=== PATIENT | female | born 1955 | race Caucasian/White ===

== ENCOUNTER → 2017-12-11 10:17 | Outpatient (CLI) | payer OTHER, SELFPAY ==
--- NOTE | 2017-12-11 | DI.MG.S_ITS ---
BILATERAL DIGITAL SCREENING MAMMOGRAM 3D/2D WITH CAD: 12/11/2017 CLINICAL: Routine screening. Family history of breast cancer. Comparison is made to exams dated: 11/17/2012 mammogram, 11/01/2015 mammogram, and 11/02/2009 mammogram - [facility]. The tissue of both breasts is extremely dense, which lowers the sensitivity of mammography. Current study was also evaluated with a Computer Aided Detection (CAD) system. No significant masses, calcifications, or other findings are seen in either breast. There has been no significant interval change. IMPRESSION: NEGATIVE There is no mammographic evidence of malignancy. A 1 year screening mammogram is recommended. This exam was interpreted at Station ID: [id number]. NOTE: For mammograms, a report in lay terms will be sent to the patient. Approximately 15% of breast malignancies will not be visualized mammographically. In the management of a palpable breast mass, a negative mammogram must not discourage biopsy of a clinically suspicious lesion. Electronically Signed By: Sachin andrade/rosalia:12/11/2017 16:47:42 letter sent: Normal Exam ACR BI-RADS Category 1: Negative [id number]
== END ==
PROVIDERS: Family Provider Family Medicine; PCP Family Medicine; Visit Provider Family Medicine
DX: Z12.31 Encounter for screening mammogram for malignant neoplasm of breast (principal); Z80.3 Family history of malignant neoplasm of breast
CPT/HCPCS: 77063; 77067

== ENCOUNTER → 2018-05-19 09:36 | Outpatient (CLI) | payer OTHER, SELFPAY | PROVIDERS: Family Provider Family Medicine; PCP Family Medicine; Visit Provider Family Medicine | DX: M85.88 Other specified disorders of bone density and structure, other site (principal); Z78.0 Asymptomatic menopausal state; E07.9 Disorder of thyroid, unspecified; Z82.62 Family history of osteoporosis | CPT/HCPCS: 77080 ==

== ENCOUNTER → 2018-09-30 11:20 | Outpatient (CLI) | payer MEDICARE, OTHER, SELFPAY ==
--- NOTE | 2018-09-30 | DI.RAD.S_ITS ---
PROCEDURE: XR LUMBAR SPINE 2-3V INDICATIONS: LOW BACK PAIN TECHNIQUE: 3 views of the lumbar spine were acquired. COMPARISON: [facility], , L-SPINE 2-3 VIEWS, 08/27/2008, 10:11. FINDINGS: Bones: No fracture or focal osseous destruction. Mild dextrocurvature. Diffuse facet arthropathy. Scattered plate spurring and sclerosis. Mild narrowing of the L5-S1 disc space. There is mild narrowing of the L1-L2, L3-L4 and L4-L5 disc spaces. Soft tissues: Overlying bowel gas pattern is normal. No suspicious soft tissue calcifications. IMPRESSION: Multilevel mild-moderate lumbar disc degeneration, most pronounced at L5-S1. This is slightly progressed since 08/27/08. Mild dextrocurvature. Dictated by: Maciel Fernandez M.D. on 09/30/2018 at 15:05 Approved by: Maciel Fernandez M.D. on 10/01/2018 at 12:05
== END ==
PROVIDERS: PCP Family Medicine; Visit Provider Family Medicine
DX: M54.5 Low back pain (principal); M51.37 Other intervertebral disc degeneration, lumbosacral region; M48.07 Spinal stenosis, lumbosacral region; M48.061 Spinal stenosis, lumbar region without neurogenic claudication
CPT/HCPCS: 72100

== ENCOUNTER → 2019-09-02 13:06 | Outpatient (CLI) | payer MEDICARE, OTHER, SELFPAY ==
[2019-09-02 13:23] LABS: Bacteria Urine None Seen; RBC Urine None Seen (0-5/HPF)
[2019-09-02 13:35] LABS: Appearance Urine UA CLEAR; Bilirubin Urine UA NEGATIVE (NEGATIVE); Color Urine UA YELLOW; Glucose Urine UA NEGATIVE (Negative); Ketones Urine UA 1+ (NEGATIVE); Leukocyte Esterase Urine UA TRACE (NEGATIVE); Nitrite Urine UA NEGATIVE (Negative); Occult Blood Urine UA TRACE-LYSED (Negative); Protein Urine UA NEGATIVE (Negative); Specific Gravity Urine UA 1.015 (1.000-1.035); Urobilinogen Urine UA 0.2 E.U./dL (0.2); pH Urine UA 5.5 (4.5-8.0)
[2019-09-02 13:59] LABS: Culture Indicated Urine Specimen Cultured; Mucus Urine 1+ (Negative); Squamous Epithelial Cell Urine None Seen (0-5/HPF); WBC Urine 1-5/HPF (0-5/HPF)
[2019-09-02 14:00] LABS: Add Manual Diff / Slide Review NO; Basophils Absolute Auto 100 /uL (0-100); Basophils Percent Auto 0.5 % (0-2); Eosinophils Absolute Auto 200 /uL (0-450); Hematocrit 36.6 % (36-46); Hemoglobin 12.1 g/dL (12.0-16.0); Lymphocytes Absolute Auto 2800 /uL (1100-4500); Lymphocytes Percent Auto 19.1 % (25-40); Mean Corpuscular HGB Conc 33.2 % (30-36); Mean Corpuscular Hemoglobin 27.7 PG (26-34); Mean Corpuscular Volume 83.4 fL (80-100); Monocytes Absolute Auto 1100 /uL (0-900); Monocytes Percent Auto 7.1 % (3-14); Neutrophils Absolute Auto 10800 /uL (1500-7000); Neutrophils Percent Auto 72.3 % (50-75); Platelet Count 417 X10^3/uL (150-400); Red Blood Cell Count 4.38 X10^6/uL (4.0-5.2); Red Cell Distribution Width 13.1 % (11.6-14.8); White Blood Cell Count 14.9 X10^3/uL (4.5-11.0)
[2019-09-02 14:18] LABS: Alanine Aminotransferase 19 IU/L (<35); Albumin Globulin Ratio 1.3 (1.0-2.8); Alkaline Phosphatase 117 U/L (38-126); Aspartate Aminotransferase 19 IU/L (14-36); BUN Creatinine Ratio 21.7 (6-22); Bilirubin Total 0.7 mg/dL (0.2-1.3); Blood Urea Nitrogen 13 mg/dL (7-17); Calcium 9.3 mg/dL (8.4-10.2); Carbon Dioxide 25 mmol/L (22-32); Chloride 97 mmol/L (98-107); Estimated Glomerular Filt Rate > 60.0 mL/min (>60); Globulin 3.2 g/dL (1.7-4.1); Glucose 100 mg/dL (80-110); HEMOLYSIS < 15 (0-50); Potassium 4.1 mmol/L (3.4-5.1); Sodium 134 mmol/L (137-145); Total Protein 7.2 g/dL (6.3-8.2)
[2019-09-02 14:29] LABS: C-Reactive Protein Quant 18.7 mg/dL (<1.0)
[2019-09-02 14:57] LABS: Erythrocyte Sedimentation Rate 60 MM/HR (0-20)
== END ==
PROVIDERS: PCP Family Medicine; Referring Provider Family Medicine; Visit Provider Family Medicine
DX: R10.9 Unspecified abdominal pain (principal)
CPT/HCPCS: 36415; 80053; 81001; 85025; 85651; 86140; 87086

== ENCOUNTER 2019-09-02 15:26 | Inpatient (IN) | payer MEDICARE, OTHER, SELFPAY ==
[2019-09-02] VITALS (17 sets, daily range): BP systolic 102–149; BP diastolic 43–86; PULSE 62–76; RESP 10–16; TEMP 36.1–37.3; O2SAT 94–100; BMI 23.7
--- NOTE | 2019-09-02 | PATH_ITS ---
[facility] Accession Number: [id number] . 01 Material submitted: . appendix - APPENDIX . 01 Clinical history: . ABDOMINAL PAIN . 02 Diagnosis: Appendix, Appendectomy: Acute appendicitis with mural abscess and serositis. 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 No evidence of neoplasm. MRV 09/08/2019 1400 Local . 02 Electronically signed: . Colin Munoz MD, PhD, Pathologist NPI- [id number] . 01 Gross description: . Received in formalin, labeled appendix, is an appendix in two pieces (length-5.8 cm, diameter-1.2 cm) with sebastian-white eroded, partially covered in exudate serosa with attached mesoappendix (up to 2.5 cm in depth). The resection margin is received opened. The lumen is void of contents. The wall appears to be up to 0.5 cm thick. No nodules or masses are identified. The resection margin is inked blue. Section code: (A1) resection margin en face and two lifeline representatives serial sections; (A2) one-half of the bivalved tip. ([id number]) /MRV 09/06/20192054 Local . 02 Pathologist provided ICD-10: K35.21 . 02 CPT . 778171 Performed at: 01 [facility] [address] [place] [address], [place], [place] [id number] MD Sachin Murillo MD Phone: [phone] Performed at: 02 [facility] [address] [place], [place] [id number] MD Faye Echavarria MD Phone: [phone]
--- NOTE | 2019-09-02 15:47 | ED_ITS ---
HPI - Abdominal Pain <Nya Mathis PA-C - Last Filed: 09/02/19 20:49> General Chief Complaint: Abdominal Pain Stated Complaint: abdominal pain Time Seen by Provider: 09/02/19 15:41 Source: patient Mode of arrival: Ambulatory Limitations: no limitations History of Present Illness HPI narrative: This 64-year-old female comes to ED secondary to worsening abdominal pain. She states that she developed generalized abdominal pain about 2 weeks ago, constant, all over her abdomen. She states that she maybe felt a bit feverish for the 1st couple of days, then seemed to resolve. She has had some chills in the last couple of days, no fever at home. She states she had a very minimal cough initially which has resolved as well. She states that she has had a poor appetite, but no nausea or vomiting. She states that she occasionally has some rectal bleeding with straining due to her hemorrhoids, no new bleeding noted. No bowel habit change noted. She denies any urinary symptoms. She denies any chest pain or dyspnea. She saw her PCP earlier today who advised her to come to ED if pain continued to progress, which it has. She had a bite of toast at 8:00 a.m. today, otherwise NPO. She states do not seem to be any exacerbating or alleviating features for pain such as position, ambulating, etc. Related Data Home Medications Medication Instructions Recorded Confirmed LEVOTHYROXINE SODIUM (Synthroid) 100 mcg PO Q DAY #0 08/24/08 09/02/19 cholecalciferol (vitamin D3) 2,000 unit PO DAILY 09/02/19 09/02/19 [Vitamin D3] Allergies Allergy/AdvReac Type Severity Reaction Status Date / Time Sulfa (Sulfonamide Allergy Verified 09/02/19 15:43 Antibiotics) Review of Systems <Nya Mathis PA-C - Last Filed: 09/02/19 20:49> Review of Systems ROS Unobtainable: All systems reviewed & are unremarkable except as noted in HPI and below Patient History <Nya Mathis PA-C - Last Filed: 09/02/19 20:49> Medical History Hypothyroidism (Chronic) Surgical History History of repair of rectocele (Chronic) Social History household members: significant other and family Smoking Status: Never smoker alcohol intake: current Smoking Status: Never smoker Substance Use Type: does not use Exam <Nya Mathis PA-C - Last Filed: 09/02/19 20:49> Narrative Exam Narrative: GENERAL APPEARANCE: Patient sitting comfortably, in no distress. HEENT: PERRL, EOMI, no scleral icterus NECK: Supple LUNGS: Clear to auscultation bilaterally. HEART: Rate and rhythm regular, normal S1 and S2, no S3 or S4. ABDOMEN: Bowel sounds +x4 quadrants. Soft, localized right lower quadrant tenderness without clear guarding or rebound, no tenderness otherwise, no CVAT EXTREMITIES: No edema, no calf tenderness DERMATOLOGIC: No jaundice or exanthem NEUROLOGIC: Alert and oriented with normal speech and coordination Initial Vital Signs Initial Vital Signs: Vital Signs Pulse Rate 71 09/02/19 15:30 Respiratory Rate 16 09/02/19 15:30 Blood Pressure 142/70 H 09/02/19 15:30 Pulse Oximetry 96 09/02/19 15:30 <Jj Cronin DO - Last Filed: 09/08/19 07:12> Initial Vital Signs Initial Vital Signs: Vital Signs Pulse Rate 71 09/02/19 15:30 Respiratory Rate 16 09/02/19 15:30 Blood Pressure 142/70 H 09/02/19 15:30 Pulse Oximetry 96 09/02/19 15:30 Course <Nya Mathis PA-C - Last Filed: 09/02/19 20:49> Course Additional Information: I spoke with Dr. Bautista, radiologist re: CT findings. I spoke with Dr. Polk, supervisor aluminum fabrication for surgery, who suspects inflammatory process most likely and will take patient to OR shortly. Zosyn started. Patient reported improvement in pain following Toradol Orders Ordered: Acetaminophen (Tylenol) 650 mg PO Q6HR PRN PRN Reason: Pain, Mild (1-3) Last Admin: 09/05/19 23:40 Dose: 650 mg Documented by: Admin: 09/05/19 09:17 Dose: 650 mg Documented by: Admin: 09/04/19 15:03 Dose: 650 mg Documented by: Admin: 09/04/19 04:17 Dose: 650 mg Documented by: Admin: 09/03/19 15:07 Dose: 650 mg Documented by: Admin: 09/03/19 06:35 Dose: 650 mg Documented by: Admin: 09/02/19 23:49 Dose: 650 mg Documented by: MISTY Bisacodyl (Dulcolax) 10 mg VT BID [facility] Last Admin: 09/07/19 21:46 Dose: Not Given Documented by: Admin: 09/07/19 07:39 Dose: Not Given Documented by: Admin: 09/06/19 21:04 Dose: Not Given Documented by: Admin: 09/06/19 09:02 Dose: Not Given Documented by: Admin: 09/05/19 20:07 Dose: Not Given Documented by: Admin: 09/05/19 09:47 Dose: Not Given Documented by: Admin: 09/04/19 22:32 Dose: Not Given Documented by: Admin: 09/04/19 14:30 Dose: Not Given Documented by: KENDRA Enoxaparin Sodium (Lovenox) 40 mg SUBCUT DAILY [facility] Admin: 09/07/19 08:50 Dose: 40 mg Documented by: Admin: 09/06/19 09:00 Dose: 40 mg Documented by: Admin: 09/05/19 08:04 Dose: 40 mg Documented by: Admin: 09/04/19 08:52 Dose: 40 mg Documented by: Admin: 09/03/19 10:06 Dose: 40 mg Documented by: KENDRA Gabapentin (Neurontin) 300 mg PO BID [facility] Last Admin: 09/07/19 21:46 Dose: 300 mg Documented by: Admin: 09/07/19 08:49 Dose: 300 mg Documented by: Admin: 09/06/19 21:04 Dose: 300 mg Documented by: Admin: 09/06/19 09:01 Dose: 300 mg Documented by: Admin: 09/05/19 20:04 Dose: 300 mg Documented by: Admin: 09/05/19 08:05 Dose: 300 mg Documented by: Admin: 09/04/19 20:13 Dose: 300 mg Documented by: Admin: 09/04/19 08:53 Dose: 300 mg Documented by: Admin: 09/03/19 20:08 Dose: 300 mg Documented by: Admin: 09/03/19 10:07 Dose: 300 mg Documented by: Admin: 09/02/19 21:22 Dose: 300 mg Documented by: ARACELIOOD Piperacillin/Tazobactam/Dextrose (Zosyn) 3.375 gm in 50 mls @ 100 mls/hr IV Q6H RIRI Last Infusion: 09/08/19 03:44 Dose: 100 mls/hr Documented by: Admin: 09/08/19 02:38 Dose: 100 mls/hr Documented by: Infusion: 09/07/19 22:13 Dose: 100 mls/hr Documented by: Admin: 09/07/19 21:43 Dose: 100 mls/hr Documented by: Infusion: 09/07/19 15:31 Dose: 100 mls/hr Documented by: Admin: 09/07/19 15:01 Dose: 100 mls/hr Documented by: Infusion: 09/07/19 10:23 Dose: 0 mls/hr Documented by: Admin: 09/07/19 08:49 Dose: 100 mls/hr Documented by: Infusion: 09/07/19 02:55 Dose: 0 mls/hr Documented by: Admin: 09/07/19 02:22 Dose: 100 mls/hr Documented by: Infusion: 09/06/19 21:35 Dose: 100 mls/hr Documented by: Admin: 09/06/19 21:05 Dose: 100 mls/hr Documented by: Infusion: 09/06/19 14:40 Dose: 100 mls/hr Documented by: Admin: 09/06/19 14:10 Dose: 100 mls/hr Documented by: Infusion: 09/06/19 11:43 Dose: 0 mls/hr Documented by: Admin: 09/06/19 09:03 Dose: 100 mls/hr Documented by: Infusion: 09/06/19 08:58 Dose: 0 mls/hr Documented by: Admin: 09/06/19 02:29 Dose: 100 mls/hr Documented by: Infusion: 09/06/19 02:28 Dose: 0 mls/hr Documented by: Admin: 09/05/19 20:04 Dose: 100 mls/hr Documented by: Infusion: 09/05/19 14:36 Dose: 100 mls/hr Documented by: Admin: 09/05/19 13:24 Dose: 100 mls/hr Documented by: Infusion: 09/05/19 08:40 Dose: 100 mls/hr Documented by: Admin: 09/05/19 08:04 Dose: 100 mls/hr Documented by: Infusion: 09/05/19 03:00 Dose: 100 mls/hr Documented by: Admin: 09/05/19 02:24 Dose: 100 mls/hr Documented by: Infusion: 09/04/19 22:32 Dose: 0 mls/hr Documented by: Admin: 09/04/19 20:05 Dose: 100 mls/hr Documented by: Infusion: 09/04/19 15:36 Dose: 0 mls/hr Documented by: Admin: 09/04/19 14:29 Dose: 100 mls/hr Documented by: Infusion: 09/04/19 09:22 Dose: 100 mls/hr Documented by: Admin: 09/04/19 08:52 Dose: 100 mls/hr Documented by: Infusion: 09/04/19 04:15 Dose: 0 mls/hr Documented by: Admin: 09/04/19 02:02 Dose: 100 mls/hr Documented by: Infusion: 09/04/19 01:23 Dose: 0 mls/hr Documented by: Admin: 09/03/19 20:09 Dose: 100 mls/hr Documented by: Infusion: 09/03/19 15:37 Dose: 100 mls/hr Documented by: Admin: 09/03/19 15:07 Dose: 100 mls/hr Documented by: Infusion: 09/03/19 14:38 Dose: 0 mls/hr Documented by: Admin: 09/03/19 10:06 Dose: 100 mls/hr Documented by: Infusion: 09/03/19 02:15 Dose: 0 mls/hr Documented by: Admin: 09/03/19 01:43 Dose: 100 mls/hr Documented by: Infusion: 09/02/19 21:55 Dose: 100 mls/hr Documented by: Admin: 09/02/19 21:25 Dose: 100 mls/hr Documented by: TRAN Levothyroxine Sodium (Synthroid) 100 mcg PO 0600 [facility] Last Admin: 09/08/19 06:37 Dose: 100 mcg Documented by: Admin: 09/07/19 05:58 Dose: 100 mcg Documented by: Admin: 09/06/19 06:29 Dose: 100 mcg Documented by: Admin: 09/05/19 13:27 Dose: 100 mcg Documented by: EMETERIO Metoclopramide HCl (Reglan) 10 mg IV Q8HR [facility] Last Admin: 09/08/19 06:35 Dose: Not Given Documented by: Admin: 09/07/19 21:46 Dose: 10 mg Documented by: Admin: 09/07/19 14:41 Dose: Not Given Documented by: Admin: 09/07/19 05:57 Dose: 10 mg Documented by: Admin: 09/06/19 21:05 Dose: 10 mg Documented by: Admin: 09/06/19 14:09 Dose: 10 mg Documented by: Admin: 09/06/19 06:29 Dose: 10 mg Documented by: Admin: 09/05/19 21:49 Dose: 10 mg Documented by: Admin: 09/05/19 14:33 Dose: 10 mg Documented by: Admin: 09/05/19 08:05 Dose: 10 mg Documented by: Admin: 09/05/19 08:05 Dose: 10 mg Documented by: Admin: 09/05/19 06:07 Dose: Not Given Documented by: Admin: 09/04/19 20:13 Dose: 10 mg Documented by: Admin: 09/04/19 14:30 Dose: Not Given Documented by: KENDRA Morphine Sulfate (Morphine) 2 mg IV Q4HR PRN PRN Reason: Pain, Moderate (4-6) Naloxone HCl (Narcan) 0.2 mg IV Q2MIN PRN PRN Reason: Opiate Reversal Ondansetron HCl (Zofran) 4 mg IV Q4HR PRN PRN Reason: Nausea And Vomiting Last Admin: 09/03/19 18:12 Dose: 4 mg Documented by: MARTITA Oxycodone/Acetaminophen (Percocet 5/325) 1 tab PO Q4HR PRN PRN Reason: Pain, Moderate (4-6) Last Admin: 09/03/19 20:08 Dose: 1 tab Documented by: JOSH Ranitidine HCl (Zantac) 150 mg PO BID [facility] Last Admin: 09/07/19 21:44 Dose: 150 mg Documented by: Admin: 09/07/19 08:50 Dose: 150 mg Documented by: Admin: 09/06/19 21:04 Dose: 150 mg Documented by: Admin: 09/06/19 08:59 Dose: 150 mg Documented by: Admin: 09/05/19 20:04 Dose: 150 mg Documented by: Admin: 09/05/19 08:05 Dose: 150 mg Documented by: Admin: 09/04/19 20:13 Dose: 150 mg Documented by: Admin: 09/04/19 08:53 Dose: 150 mg Documented by: Admin: 09/03/19 20:08 Dose: 150 mg Documented by: Admin: 09/03/19 10:07 Dose: 150 mg Documented by: Admin: 09/02/19 21:22 Dose: 150 mg Documented by: TRAN Simethicone (Mylicon) 80 mg PO QID [facility] Last Admin: 09/07/19 21:45 Dose: 80 mg Documented by: Admin: 09/07/19 17:44 Dose: Not Given Documented by: Admin: 09/07/19 14:41 Dose: Not Given Documented by: Admin: 09/07/19 08:49 Dose: 80 mg Documented by: Admin: 09/06/19 21:04 Dose: 80 mg Documented by: Admin: 09/06/19 17:20 Dose: 80 mg Documented by: Admin: 09/06/19 14:09 Dose: 80 mg Documented by: Admin: 09/06/19 08:59 Dose: 80 mg Documented by: Admin: 09/05/19 20:04 Dose: 80 mg Documented by: Admin: 09/05/19 17:20 Dose: 80 mg Documented by: Admin: 09/05/19 13:24 Dose: 80 mg Documented by: Admin: 09/05/19 09:23 Dose: 80 mg Documented by: Admin: 09/04/19 20:13 Dose: 80 mg Documented by: Admin: 09/04/19 17:14 Dose: 80 mg Documented by: Admin: 09/04/19 14:29 Dose: 80 mg Documented by: Admin: 09/04/19 08:53 Dose: 80 mg Documented by: Admin: 09/03/19 20:10 Dose: 80 mg Documented by: Admin: 09/03/19 17:28 Dose: 80 mg Documented by: Admin: 09/03/19 15:07 Dose: 80 mg Documented by: Admin: 09/03/19 10:07 Dose: 80 mg Documented by: Admin: 09/02/19 21:22 Dose: 80 mg Documented by: TRAN Sodium Chloride (Normal Saline 0.9% Flush) 10 ml IV BID RIRI Last Admin: 09/08/19 02:37 Dose: Not Given Documented by: Admin: 09/07/19 08:50 Dose: 10 ml Documented by: Admin: 09/06/19 21:05 Dose: Not Given Documented by: Admin: 09/06/19 09:02 Dose: 10 ml Documented by: Admin: 09/06/19 06:30 Dose: 10 ml Documented by: Admin: 09/05/19 20:04 Dose: 10 ml Documented by: MARTHA Discontinued Medications Bupivacaine HCl/Epinephrine Bitart (Sensorcaine 0.5% W/ Epi (Pf)) 20 ml INJ NOW ONE Stop: 09/02/19 18:51 Last Admin: 09/02/19 18:50 Dose: 20 ml Documented by: ALTRO Sodium Chloride 1,000 ml/ (Bacitracin 50,000 unit) 0 ml IRR NOW ONE Stop: 09/02/19 18:53 Last Admin: 09/02/19 18:56 Dose: 1,000 irrig.soln Documented by: LISA Fentanyl (Sublimaze) 0 mcg IV Q5M PRN PRN Reason: Pain, Moderate (4-6) Hydromorphone HCl (Dilaudid) 0 mg IV Q5M PRN PRN Reason: Pain, Moderate (4-6) Last Admin: 09/02/19 20:02 Dose: 0.5 mg Documented by: Admin: 09/02/19 19:46 Dose: 0.5 mg Documented by: CGAClifford Sodium Chloride (Normal Saline 0.9%) 1,000 mls @ 1,000 mls/hr IV BOLUS ONE Stop: 09/02/19 17:02 Last Infusion: 09/02/19 17:48 Dose: 400 mls/hr Documented by: Infusion: 09/02/19 17:47 Dose: 400 mls/hr Documented by: Admin: 09/02/19 16:10 Dose: 1,000 mls/hr Documented by: MEISENThierno Piperacillin/Tazobactam/Dextrose (Zosyn) 3.375 gm in 50 mls @ 100 mls/hr IV NOW ONE Stop: 09/02/19 17:34 Last Infusion: 09/02/19 17:49 Dose: 100 mls/hr Documented by: Admin: 09/02/19 17:18 Dose: 100 mls/hr Documented by: MEISENB Lactated Ringer's (Lactated Ringers) 1,000 mls @ 42 mls/hr IV CONT RIRI Last Infusion: 09/02/19 20:43 Dose: 42 mls/hr Documented by: Admin: 09/02/19 18:56 Dose: 42 mls/hr Documented by: Infusion: 09/02/19 18:56 Dose: 42 mls/hr Documented by: Admin: 09/02/19 18:15 Dose: 42 mls/hr Documented by: JACKSON Sodium Chloride (Normal Saline 0.9%) 1,000 mls @ 75 mls/hr IV CONT RIRI Last Admin: 09/04/19 20:22 Dose: 75 mls/hr Documented by: Infusion: 09/04/19 19:34 Dose: 75 mls/hr Documented by: Admin: 09/04/19 06:14 Dose: 75 mls/hr Documented by: Infusion: 09/03/19 23:06 Dose: 75 mls/hr Documented by: Admin: 09/03/19 15:06 Dose: 125 mls/hr Documented by: Infusion: 09/03/19 14:37 Dose: 125 mls/hr Documented by: Admin: 09/03/19 06:37 Dose: 125 mls/hr Documented by: Infusion: 09/03/19 05:24 Dose: 125 mls/hr Documented by: Admin: 09/02/19 21:24 Dose: 125 mls/hr Documented by: TRAN Ketorolac Tromethamine (Toradol) 30 mg IV NOW ONE Stop: 09/02/19 16:04 Last Admin: 09/02/19 16:11 Dose: 30 mg Documented by: SOHAIL Ondansetron HCl (Zofran) 4 mg IV NOW PRN PRN Reason: Nausea And Vomiting Last Admin: 09/02/19 19:47 Dose: 4 mg Documented by: ABI Vital Signs Vital signs: Vital Signs - 8 hr 09/02/19 15:30 09/02/19 15:34 09/02/19 16:00 Temperature 99.2 F Pulse Rate 71 73 68 Respiratory Rate 16 16 16 Blood Pressure 149/86 H Blood Pressure [Right Arm] 142/70 H 121/68 Pulse Oximetry 96 100 100 09/02/19 17:00 Temperature Pulse Rate 71 Respiratory Rate 16 Blood Pressure Blood Pressure [Right Arm] 109/64 Pulse Oximetry 100 <Jj Cronin DO - Last Filed: 09/08/19 07:12> Orders Ordered: Acetaminophen (Tylenol) 650 mg PO Q6HR PRN PRN Reason: Pain, Mild (1-3) Last Admin: 09/05/19 23:40 Dose: 650 mg Documented by: Admin: 09/05/19 09:17 Dose: 650 mg Documented by: Admin: 09/04/19 15:03 Dose: 650 mg Documented by: Admin: 09/04/19 04:17 Dose: 650 mg Documented by: Admin: 09/03/19 15:07 Dose: 650 mg Documented by: Admin: 09/03/19 06:35 Dose: 650 mg Documented by: Admin: 09/02/19 23:49 Dose: 650 mg Documented by: MISTY Bisacodyl (Dulcolax) 10 mg VT BID [facility] Admin: 09/07/19 21:46 Dose: Not Given Documented by: Admin: 09/07/19 07:39 Dose: Not Given Documented by: Admin: 09/06/19 21:04 Dose: Not Given Documented by: Admin: 09/06/19 09:02 Dose: Not Given Documented by: Admin: 09/05/19 20:07 Dose: Not Given Documented by: Admin: 09/05/19 09:47 Dose: Not Given Documented by: Admin: 09/04/19 22:32 Dose: Not Given Documented by: Admin: 09/04/19 14:30 Dose: Not Given Documented by: KENDRA Enoxaparin Sodium (Lovenox) 40 mg SUBCUT DAILY [facility] Admin: 09/07/19 08:50 Dose: 40 mg Documented by: Admin: 09/06/19 09:00 Dose: 40 mg Documented by: Admin: 09/05/19 08:04 Dose: 40 mg Documented by: Admin: 09/04/19 08:52 Dose: 40 mg Documented by: Admin: 09/03/19 10:06 Dose: 40 mg Documented by: KENDRA Gabapentin (Neurontin) 300 mg PO BID [facility] Last Admin: 09/07/19 21:46 Dose: 300 mg Documented by: Admin: 09/07/19 08:49 Dose: 300 mg Documented by: Admin: 09/06/19 21:04 Dose: 300 mg Documented by: Admin: 09/06/19 09:01 Dose: 300 mg Documented by: Admin: 09/05/19 20:04 Dose: 300 mg Documented by: Admin: 09/05/19 08:05 Dose: 300 mg Documented by: Admin: 09/04/19 20:13 Dose: 300 mg Documented by: Admin: 09/04/19 08:53 Dose: 300 mg Documented by: Admin: 09/03/19 20:08 Dose: 300 mg Documented by: Admin: 09/03/19 10:07 Dose: 300 mg Documented by: Admin: 09/02/19 21:22 Dose: 300 mg Documented by: TRAN Piperacillin/Tazobactam/Dextrose (Zosyn) 3.375 gm in 50 mls @ 100 mls/hr IV Q6H RIRI Last Infusion: 09/08/19 03:44 Dose: 100 mls/hr Documented by: Admin: 09/08/19 02:38 Dose: 100 mls/hr Documented by: Infusion: 09/07/19 22:13 Dose: 100 mls/hr Documented by: Admin: 09/07/19 21:43 Dose: 100 mls/hr Documented by: Infusion: 09/07/19 15:31 Dose: 100 mls/hr Documented by: Admin: 09/07/19 15:01 Dose: 100 mls/hr Documented by: Infusion: 09/07/19 10:23 Dose: 0 mls/hr Documented by: Admin: 09/07/19 08:49 Dose: 100 mls/hr Documented by: Infusion: 09/07/19 02:55 Dose: 0 mls/hr Documented by: Admin: 09/07/19 02:22 Dose: 100 mls/hr Documented by: Infusion: 09/06/19 21:35 Dose: 100 mls/hr Documented by: Admin: 09/06/19 21:05 Dose: 100 mls/hr Documented by: Infusion: 09/06/19 14:40 Dose: 100 mls/hr Documented by: Admin: 09/06/19 14:10 Dose: 100 mls/hr Documented by: Infusion: 09/06/19 11:43 Dose: 0 mls/hr Documented by: Admin: 09/06/19 09:03 Dose: 100 mls/hr Documented by: Infusion: 09/06/19 08:58 Dose: 0 mls/hr Documented by: Admin: 09/06/19 02:29 Dose: 100 mls/hr Documented by: Infusion: 09/06/19 02:28 Dose: 0 mls/hr Documented by: Admin: 09/05/19 20:04 Dose: 100 mls/hr Documented by: Infusion: 09/05/19 14:36 Dose: 100 mls/hr Documented by: Admin: 09/05/19 13:24 Dose: 100 mls/hr Documented by: Infusion: 09/05/19 08:40 Dose: 100 mls/hr Documented by: Admin: 09/05/19 08:04 Dose: 100 mls/hr Documented by: Infusion: 09/05/19 03:00 Dose: 100 mls/hr Documented by: Admin: 09/05/19 02:24 Dose: 100 mls/hr Documented by: Infusion: 09/04/19 22:32 Dose: 0 mls/hr Documented by: Admin: 09/04/19 20:05 Dose: 100 mls/hr Documented by: Infusion: 09/04/19 15:36 Dose: 0 mls/hr Documented by: Admin: 09/04/19 14:29 Dose: 100 mls/hr Documented by: Infusion: 09/04/19 09:22 Dose: 100 mls/hr Documented by: Admin: 09/04/19 08:52 Dose: 100 mls/hr Documented by: Infusion: 09/04/19 04:15 Dose: 0 mls/hr Documented by: Admin: 09/04/19 02:02 Dose: 100 mls/hr Documented by: Infusion: 09/04/19 01:23 Dose: 0 mls/hr Documented by: Admin: 09/03/19 20:09 Dose: 100 mls/hr Documented by: Infusion: 09/03/19 15:37 Dose: 100 mls/hr Documented by: Admin: 09/03/19 15:07 Dose: 100 mls/hr Documented by: Infusion: 09/03/19 14:38 Dose: 0 mls/hr Documented by: Admin: 09/03/19 10:06 Dose: 100 mls/hr Documented by: Infusion: 09/03/19 02:15 Dose: 0 mls/hr Documented by: Admin: 09/03/19 01:43 Dose: 100 mls/hr Documented by: Infusion: 09/02/19 21:55 Dose: 100 mls/hr Documented by: Admin: 09/02/19 21:25 Dose: 100 mls/hr Documented by: TRAN Levothyroxine Sodium (Synthroid) 100 mcg PO 0600 [facility] Last Admin: 09/08/19 06:37 Dose: 100 mcg Documented by: Admin: 09/07/19 05:58 Dose: 100 mcg Documented by: Admin: 09/06/19 06:29 Dose: 100 mcg Documented by: Admin: 09/05/19 13:27 Dose: 100 mcg Documented by: EMETERIO Metoclopramide HCl (Reglan) 10 mg IV Q8HR [facility] Last Admin: 09/08/19 06:35 Dose: Not Given Documented by: Admin: 09/07/19 21:46 Dose: 10 mg Documented by: Admin: 09/07/19 14:41 Dose: Not Given Documented by: Admin: 09/07/19 05:57 Dose: 10 mg Documented by: Admin: 09/06/19 21:05 Dose: 10 mg Documented by: Admin: 09/06/19 14:09 Dose: 10 mg Documented by: Admin: 09/06/19 06:29 Dose: 10 mg Documented by: Admin: 09/05/19 21:49 Dose: 10 mg Documented by: Admin: 09/05/19 14:33 Dose: 10 mg Documented by: Admin: 09/05/19 08:05 Dose: 10 mg Documented by: Admin: 09/05/19 08:05 Dose: 10 mg Documented by: Admin: 09/05/19 06:07 Dose: Not Given Documented by: Admin: 09/04/19 20:13 Dose: 10 mg Documented by: Admin: 09/04/19 14:30 Dose: Not Given Documented by: KENDRA Morphine Sulfate (Morphine) 2 mg IV Q4HR PRN PRN Reason: Pain, Moderate (4-6) Naloxone HCl (Narcan) 0.2 mg IV Q2MIN PRN PRN Reason: Opiate Reversal Ondansetron HCl (Zofran) 4 mg IV Q4HR PRN PRN Reason: Nausea And Vomiting Last Admin: 09/03/19 18:12 Dose: 4 mg Documented by: MARTITA Oxycodone/Acetaminophen (Percocet 5/325) 1 tab PO Q4HR PRN PRN Reason: Pain, Moderate (4-6) Last Admin: 09/03/19 20:08 Dose: 1 tab Documented by: JOSH Ranitidine HCl (Zantac) 150 mg PO BID [facility] Last Admin: 09/07/19 21:44 Dose: 150 mg Documented by: Admin: 09/07/19 08:50 Dose: 150 mg Documented by: Admin: 09/06/19 21:04 Dose: 150 mg Documented by: Admin: 09/06/19 08:59 Dose: 150 mg Documented by: Admin: 09/05/19 20:04 Dose: 150 mg Documented by: Admin: 09/05/19 08:05 Dose: 150 mg Documented by: Admin: 09/04/19 20:13 Dose: 150 mg Documented by: Admin: 09/04/19 08:53 Dose: 150 mg Documented by: Admin: 09/03/19 20:08 Dose: 150 mg Documented by: Admin: 09/03/19 10:07 Dose: 150 mg Documented by: Admin: 09/02/19 21:22 Dose: 150 mg Documented by: TRAN Simethicone (Mylicon) 80 mg PO QID [facility] Last Admin: 09/07/19 21:45 Dose: 80 mg Documented by: Admin: 09/07/19 17:44 Dose: Not Given Documented by: Admin: 09/07/19 14:41 Dose: Not Given Documented by: Admin: 09/07/19 08:49 Dose: 80 mg Documented by: Admin: 09/06/19 21:04 Dose: 80 mg Documented by: Admin: 09/06/19 17:20 Dose: 80 mg Documented by: Admin: 09/06/19 14:09 Dose: 80 mg Documented by: Admin: 09/06/19 08:59 Dose: 80 mg Documented by: Admin: 09/05/19 20:04 Dose: 80 mg Documented by: Admin: 09/05/19 17:20 Dose: 80 mg Documented by: Admin: 09/05/19 13:24 Dose: 80 mg Documented by: Admin: 09/05/19 09:23 Dose: 80 mg Documented by: Admin: 09/04/19 20:13 Dose: 80 mg Documented by: Admin: 09/04/19 17:14 Dose: 80 mg Documented by: Admin: 09/04/19 14:29 Dose: 80 mg Documented by: Admin: 09/04/19 08:53 Dose: 80 mg Documented by: Admin: 09/03/19 20:10 Dose: 80 mg Documented by: Admin: 09/03/19 17:28 Dose: 80 mg Documented by: Admin: 09/03/19 15:07 Dose: 80 mg Documented by: Admin: 09/03/19 10:07 Dose: 80 mg Documented by: Admin: 09/02/19 21:22 Dose: 80 mg Documented by: TRAN Sodium Chloride (Normal Saline 0.9% Flush) 10 ml IV BID RIRI Last Admin: 09/08/19 02:37 Dose: Not Given Documented by: Admin: 09/07/19 08:50 Dose: 10 ml Documented by: Admin: 09/06/19 21:05 Dose: Not Given Documented by: Admin: 09/06/19 09:02 Dose: 10 ml Documented by: Admin: 09/06/19 06:30 Dose: 10 ml Documented by: Admin: 09/05/19 20:04 Dose: 10 ml Documented by: MARTHA Discontinued Medications Bupivacaine HCl/Epinephrine Bitart (Sensorcaine 0.5% W/ Epi (Pf)) 20 ml INJ NOW ONE Stop: 09/02/19 18:51 Last Admin: 09/02/19 18:50 Dose: 20 ml Documented by: ALTRO Sodium Chloride 1,000 ml/ (Bacitracin 50,000 unit) 0 ml IRR NOW ONE Stop: 09/02/19 18:53 Last Admin: 09/02/19 18:56 Dose: 1,000 irrig.soln Documented by: LISA Fentanyl (Sublimaze) 0 mcg IV Q5M PRN PRN Reason: Pain, Moderate (4-6) Hydromorphone HCl (Dilaudid) 0 mg IV Q5M PRN PRN Reason: Pain, Moderate (4-6) Last Admin: 09/02/19 20:02 Dose: 0.5 mg Documented by: Admin: 09/02/19 19:46 Dose: 0.5 mg Documented by: ABI Sodium Chloride (Normal Saline 0.9%) 1,000 mls @ 1,000 mls/hr IV BOLUS ONE Stop: 09/02/19 17:02 Last Infusion: 09/02/19 17:48 Dose: 400 mls/hr Documented by: Infusion: 09/02/19 17:47 Dose: 400 mls/hr Documented by: Admin: 09/02/19 16:10 Dose: 1,000 mls/hr Documented by: JEFFREYSENThierno Piperacillin/Tazobactam/Dextrose (Zosyn) 3.375 gm in 50 mls @ 100 mls/hr IV NOW ONE Stop: 09/02/19 17:34 Last Infusion: 09/02/19 17:49 Dose: 100 mls/hr Documented by: Admin: 09/02/19 17:18 Dose: 100 mls/hr Documented by: MEISENThierno Lactated Ringer's (Lactated Ringers) 1,000 mls @ 42 mls/hr IV CONT RIRI Last Infusion: 09/02/19 20:43 Dose: 42 mls/hr Documented by: Admin: 09/02/19 18:56 Dose: 42 mls/hr Documented by: Infusion: 09/02/19 18:56 Dose: 42 mls/hr Documented by: Admin: 09/02/19 18:15 Dose: 42 mls/hr Documented by: JACKSON Sodium Chloride (Normal Saline 0.9%) 1,000 mls @ 75 mls/hr IV CONT RIRI Last Admin: 09/04/19 20:22 Dose: 75 mls/hr Documented by: Infusion: 09/04/19 19:34 Dose: 75 mls/hr Documented by: Admin: 09/04/19 06:14 Dose: 75 mls/hr Documented by: Infusion: 09/03/19 23:06 Dose: 75 mls/hr Documented by: Admin: 09/03/19 15:06 Dose: 125 mls/hr Documented by: Infusion: 09/03/19 14:37 Dose: 125 mls/hr Documented by: Admin: 09/03/19 06:37 Dose: 125 mls/hr Documented by: Infusion: 09/03/19 05:24 Dose: 125 mls/hr Documented by: Admin: 09/02/19 21:24 Dose: 125 mls/hr Documented by: TRAN Ketorolac Tromethamine (Toradol) 30 mg IV NOW ONE Stop: 09/02/19 16:04 Last Admin: 09/02/19 16:11 Dose: 30 mg Documented by: SOHAIL Ondansetron HCl (Zofran) 4 mg IV NOW PRN PRN Reason: Nausea And Vomiting Last Admin: 09/02/19 19:47 Dose: 4 mg Documented by: CGAY Vital Signs Vital signs: Vital Signs - 8 hr 09/02/19 15:30 09/02/19 15:34 09/02/19 16:00 Temperature 99.2 F Pulse Rate 71 73 68 Respiratory Rate 16 16 16 Blood Pressure 149/86 H Blood Pressure [Right Arm] 142/70 H 121/68 Pulse Oximetry 96 100 100 09/02/19 17:00 Temperature Pulse Rate 71 Respiratory Rate 16 Blood Pressure Blood Pressure [Right Arm] 109/64 Pulse Oximetry 100 MDM - Abdominal Pain <Nya Mathis PA-C - Last Filed: 09/02/19 20:49> Lab Data Attestation: I reviewed the patient's lab results. Result diagrams: 09/08/19 06:00 09/02/19 16:16 Labs: Lab Results 09/02/19 09/02/19 09/02/19 Range/Units 16:16 16:16 16:16 WBC 12.8 H (4.5-11.0) X10^3/uL RBC 4.17 (4.0-5.2) X10^6/uL Hgb 11.6 L (12.0-16.0) g/dL Hct 34.6 L (36-46) % MCV 82.9 (80-100) fL MCH 27.7 (26-34) PG MCHC 33.5 (30-36) % RDW 12.8 (11.6-14.8) % Plt Count 383 (150-400) X10^3/uL Neut % (Auto) 67.3 (50-75) % Lymph % (Auto) 22.9 L (25-40) % Potter % (Auto) 7.6 (3-14) % Eos % (Auto) 1.2 L (2-4) % Baso % (Auto) 1.0 (0-2) % Neut # (Auto) 8600 H (3601-7492) /uL Lymph # (Auto) 2900 (0204-3628) /uL [place] # (Auto) 1000 H (0-900) /uL Eos # (Auto) 200 (0-450) /uL Baso # (Auto) 100 (0-100) /uL Sodium 135 L (137-145) mmol/L Potassium 3.9 (3.4-5.1) mmol/L Chloride 98 (98-107) mmol/L Carbon Dioxide 25 (22-32) mmol/L BUN 12 (7-17) mg/dL Creatinine 0.60 (0.52-1.04) mg/dL Estimated GFR > 60.0 (>60) mL/min BUN/Creatinine Ratio 20.0 (6-22) Glucose 92 (80-110) mg/dL Lactate 0.9 (0.7-2.1) mmol/L Calcium 9.2 (8.4-10.2) mg/dL Total Bilirubin 0.7 (0.2-1.3) mg/dL AST 17 (14-36) IU/L ALT 19 (<35) IU/L Alkaline Phosphatase 105 (38-126) U/L C-Reactive Protein 18.1 H (<1.0) mg/dL Total Protein 6.8 (6.3-8.2) g/dL Albumin 3.8 (3.5-5.0) g/dL Globulin 3.0 (1.7-4.1) g/dL Albumin/Globulin Ratio 1.3 (1.0-2.8) Lipase 25 (23-300) U/L Imaging Data CT scan - abdomen/pelvis: Radiologist's Impression: 18 Nya Mathis PA-C Find Patient Imaging - Lauren Moise S 64 F 1955 ACTIVITY DATE EXAM STATUS AUTHOR 09/02/19 16:03 [place] [address] CT Scan Report Signed Patient: Lauren Moise [facility]#: [id number] : 4Acct:[id number] Age/Sex: 64 / FDate of Service: 09/02/19 Loc: ED Accession Number: [id number] Procedure: CT abdomen pelvis w con Ordering Provider: Nya Mathis P.A-C PROCEDURE: CT ABDOMEN PELVIS W CON INDICATIONS: localizing RLQ pain, white count. TECHNIQUE: After the administration of intravenous contrast, 5 mm thick sections acquired from the diaphragm to the symphysis. 5 mm coronal and sagittal reformats were acquired. For radiation dose reduction, the following was used: automated exposure control, adjustment of mA and/or kV according to patient size. COMPARISON: None. FINDINGS: Image quality: Excellent. ABDOMEN: Lung bases: Lung bases are clear. Heart size is normal. Solid organs: Low density nodule is seen liver are most likely hepatic cysts. Liver is normal in size and enhancement. Gallbladder is normal. Biliary system is non dilated. Pancreas enhances normally. Spleen is normal in size and enhancement. No adrenal nodules. Kidneys demonstrate normal size and enhancement. There is moderate right hydronephrosis and hydroureter. There are bilateral renal cortical cysts. Peritoneum and bowel: There is an irregular mass in the right lower quadrant just below the cecum measuring 5.4 x 6.3 x 5.6 cm. The mass demonstrates both cystic and solid components with heterogeneous enhancement. The appendix is not definitively identified. The terminal ileum is anterior to the mass and may be thickened. No free fluid or air. Nodes and vessels: Prominent mesenteric are seen in the right lower quadrant measuring up to 1 cm. No enlarged retroperitoneal lymph nodes. Aorta and inferior vena cava are normal in size. Miscellaneous: No ventral hernias. PELVIS: Genitourinary: Bladder wall thickness is normal. Uterus is normal. Ovaries are not well-seen. Miscellaneous: No inguinal hernias or adenopathy. Bones: No suspicious bony lesions. No vertebral body compression fractures. IMPRESSION: 1. There is an irregular 5.4 x 6.3 x 5.6 cm mass in the right lower quadrant just below the cecum, which demonstrates both cystic and solid components with heterogeneous enhancement. The appendix is not definitively identified. The terminal ileum is anterior to the mass and appears thickened. Differential diagnosis include an inflammatory pseudomass versus neoplasm. Since there is no oral contrast given for the exam, repeat CT with oral contrast may be helpful. If gynecological origin of the mass is suspected, pelvic ultrasound may also have better. 2. Mildly enlarged mesenteric lymph nodes in the right lower quadrant, which is nonspecific. 3. There is moderate right hydronephrosis and hydroureter to the level of right pelvic mass, consistent obstruction of the right kidney by the mass. This result was discussed with Victorino Mathis. Dictated by: Lydia Bautista M.D. on 09/02/2019 at 16:42 Approved by: Lydia Bautista M.D. on 09/02/2019 at 17:11 <Jj Cronin DO - Last Filed: 09/08/19 07:12> Lab Data Labs: Lab Results 09/02/19 09/02/19 09/02/19 Range/Units 16:16 16:16 16:16 WBC 12.8 H (4.5-11.0) X10^3/uL RBC 4.17 (4.0-5.2) X10^6/uL Hgb 11.6 L (12.0-16.0) g/dL Hct 34.6 L (36-46) % MCV 82.9 (80-100) fL MCH 27.7 (26-34) PG MCHC 33.5 (30-36) % RDW 12.8 (11.6-14.8) % Plt Count 383 (150-400) X10^3/uL Neut % (Auto) 67.3 (50-75) % Lymph % (Auto) 22.9 L (25-40) % Potter % (Auto) 7.6 (3-14) % Eos % (Auto) 1.2 L (2-4) % Baso % (Auto) 1.0 (0-2) % Neut # (Auto) 8600 H (5970-7911) /uL Lymph # (Auto) 2900 (9600-9882) /uL [place] # (Auto) 1000 H (0-900) /uL Eos # (Auto) 200 (0-450) /uL Baso # (Auto) 100 (0-100) /uL Sodium 135 L (137-145) mmol/L Potassium 3.9 (3.4-5.1) mmol/L Chloride 98 (98-107) mmol/L Carbon Dioxide 25 (22-32) mmol/L BUN 12 (7-17) mg/dL Creatinine 0.60 (0.52-1.04) mg/dL Estimated GFR > 60.0 (>60) mL/min BUN/Creatinine Ratio 20.0 (6-22) Glucose 92 (80-110) mg/dL Lactate 0.9 (0.7-2.1) mmol/L Calcium 9.2 (8.4-10.2) mg/dL Total Bilirubin 0.7 (0.2-1.3) mg/dL AST 17 (14-36) IU/L ALT 19 (<35) IU/L Alkaline Phosphatase 105 (38-126) U/L C-Reactive Protein 18.1 H (<1.0) mg/dL Total Protein 6.8 (6.3-8.2) g/dL Albumin 3.8 (3.5-5.0) g/dL Globulin 3.0 (1.7-4.1) g/dL Albumin/Globulin Ratio 1.3 (1.0-2.8) Lipase 25 (23-300) U/L Discharge Plan Departure Patient Disposition: Admitted As Inpatient Clinical Impression: Abdominal mass, RLQ (right lower quadrant) Discharge Date/Time: 09/02/19 17:49 Admit Date/Time: 09/02/19 17:24 Admit Provider: Ty Polk <Jj Cronin, DO - Last Filed: 09/08/19 07:12> Sign Out Provider Sign Out Attestation: Dr Cronin Co-Sign Statement: I was available for consultation during this patient's emergency department visit. This chart is signed by myself for administrative purposes only. I did not have direct contact with this patient during this visit. They were seen independently by the APC.
--- NOTE | 2019-09-02 15:54 | PC.NURSE ---
pt reports, abdominal pain for 2 weeks, worsen when sitting. felt feverish, also with some coughing. denies nausea or vomiting. had lab work done today and schedule for ct tomorrow.
--- NOTE | 2019-09-02 16:03 | DI.CT.S_ITS ---
PROCEDURE: CT ABDOMEN PELVIS W CON INDICATIONS: localizing RLQ pain, white count. TECHNIQUE: After the administration of intravenous contrast, 5 mm thick sections acquired from the diaphragm to the symphysis. 5 mm coronal and sagittal reformats were acquired. For radiation dose reduction, the following was used: automated exposure control, adjustment of mA and/or kV according to patient size. COMPARISON: None. FINDINGS: Image quality: Excellent. ABDOMEN: Lung bases: Lung bases are clear. Heart size is normal. Solid organs: Low density nodule is seen liver are most likely hepatic cysts. Liver is normal in size and enhancement. Gallbladder is normal. Biliary system is non dilated. Pancreas enhances normally. Spleen is normal in size and enhancement. No adrenal nodules. Kidneys demonstrate normal size and enhancement. There is moderate right hydronephrosis and hydroureter. There are bilateral renal cortical cysts. Peritoneum and bowel: There is an irregular mass in the right lower quadrant just below the cecum measuring 5.4 x 6.3 x 5.6 cm. The mass demonstrates both cystic and solid components with heterogeneous enhancement. The appendix is not definitively identified. The terminal ileum is anterior to the mass and may be thickened. No free fluid or air. Nodes and vessels: Prominent mesenteric are seen in the right lower quadrant measuring up to 1 cm. No enlarged retroperitoneal lymph nodes. Aorta and inferior vena cava are normal in size. Miscellaneous: No ventral hernias. PELVIS: Genitourinary: Bladder wall thickness is normal. Uterus is normal. Ovaries are not well-seen. Miscellaneous: No inguinal hernias or adenopathy. Bones: No suspicious bony lesions. No vertebral body compression fractures. IMPRESSION: 1. There is an irregular 5.4 x 6.3 x 5.6 cm mass in the right lower quadrant just below the cecum, which demonstrates both cystic and solid components with heterogeneous enhancement. The appendix is not definitively identified. The terminal ileum is anterior to the mass and appears thickened. Differential diagnosis include an inflammatory pseudomass versus neoplasm. Since there is no oral contrast given for the exam, repeat CT with oral contrast may be helpful. If gynecological origin of the mass is suspected, pelvic ultrasound may also have better. 2. Mildly enlarged mesenteric lymph nodes in the right lower quadrant, which is nonspecific. 3. There is moderate right hydronephrosis and hydroureter to the level of right pelvic mass, consistent obstruction of the right kidney by the mass. This result was discussed with Victorino Mathis. Dictated by: Lydia Bautista M.D. on 09/02/2019 at 16:42 Approved by: Lydia Bautista M.D. on 09/02/2019 at 17:11
[2019-09-02] MEDS: SODIUM CHLORIDE 0.9% 1,000 ML 1000 ML IV (16:10)
[2019-09-02] MEDS: KETOROLAC 60 MG/2 ML VIAL 30 MG IV (16:11)
[2019-09-02 16:22] LABS: Add Manual Diff / Slide Review NO; Basophils Absolute Auto 100 /uL (0-100); Eosinophils Absolute Auto 200 /uL (0-450); Eosinophils Percent Auto 1.2 % (2-4); Hematocrit 34.6 % (36-46); Hemoglobin 11.6 g/dL (12.0-16.0); Lymphocytes Absolute Auto 2900 /uL (1100-4500); Lymphocytes Percent Auto 22.9 % (25-40); Mean Corpuscular HGB Conc 33.5 % (30-36); Mean Corpuscular Hemoglobin 27.7 PG (26-34); Mean Corpuscular Volume 82.9 fL (80-100); Monocytes Absolute Auto 1000 /uL (0-900); Monocytes Percent Auto 7.6 % (3-14); Neutrophils Absolute Auto 8600 /uL (1500-7000); Neutrophils Percent Auto 67.3 % (50-75); Platelet Count 383 X10^3/uL (150-400); Red Blood Cell Count 4.17 X10^6/uL (4.0-5.2); Red Cell Distribution Width 12.8 % (11.6-14.8); White Blood Cell Count 12.8 X10^3/uL (4.5-11.0)
[2019-09-02 16:34] LABS: Lactate (Lactic Acid) 0.9 mmol/L (0.7-2.1)
[2019-09-02 16:36] LABS: Alanine Aminotransferase 19 IU/L (<35); Albumin 3.8 g/dL (3.5-5.0); Albumin Globulin Ratio 1.3 (1.0-2.8); Alkaline Phosphatase 105 U/L (38-126); Aspartate Aminotransferase 17 IU/L (14-36); Bilirubin Total 0.7 mg/dL (0.2-1.3); Blood Urea Nitrogen 12 mg/dL (7-17); Calcium 9.2 mg/dL (8.4-10.2); Carbon Dioxide 25 mmol/L (22-32); Chloride 98 mmol/L (98-107); Estimated Glomerular Filt Rate > 60.0 mL/min (>60); Glucose 92 mg/dL (80-110); HEMOLYSIS < 15 (0-50); Lipase 25 U/L (23-300); Potassium 3.9 mmol/L (3.4-5.1); Sodium 135 mmol/L (137-145); Total Protein 6.8 g/dL (6.3-8.2)
[2019-09-02 16:49] LABS: C-Reactive Protein Quant 18.1 mg/dL (<1.0)
[2019-09-02] MEDS: PIPERACILLIN-TAZO 3.375 GM/50 ML FROZ.PIGGY IV ×2 (17:18→21:25)
--- NOTE | 2019-09-02 17:59 | P.HP_ITS ---
History of Present Illness History of Present Illness Date Patient Seen: 09/02/19 Time Patient Seen: 18:00 Chief complaint: abdominal pain Narrative: 64-year-old white female patient who has had a history of abdominal pain for the last 2 weeks. The pain began in the upper abdomen it has been associated with considerable anorexia but no vomiting. No diarrhea. Over the last several days the pain is centered in the right lower quadrant. She came to the emergency department here where she has a white count of 13,[address] scan which shows an inflammatory mass around the cecum. Patient History Medical History Hypothyroidism (Chronic) Surgical History History of repair of rectocele (Chronic) Family & Social History Safety & Behavioral: Feels Safe in Current Yes Environment Been Physically Hurt or No Threatened By a Person Tobacco & Substance use: Smoking Status Never smoker Substance Use Type does not use Meds Home Medications and Allergies Home Medications Medication Instructions Recorded Confirmed Type LEVOTHYROXINE SODIUM (Synthroid) 125 mcg PO Q DAY #0 08/24/08 History Allergies Allergy/AdvReac Type Severity Reaction Status Date / Time Sulfa (Sulfonamide Allergy Verified 09/02/19 15:43 Antibiotics) Review of Systems Review of Systems ROS: Yes All systems reviewed with the patient and are negative except as otherwise documented Exam Vital Signs (past 8 hours): - 09/02/19 15:30 09/02/19 15:34 09/02/19 16:00 Temperature 99.2 F Pulse Rate 71 73 68 Respiratory Rate 16 16 16 Blood Pressure 149/86 H Blood Pressure [Right Arm] 142/70 H 121/68 Pulse Oximetry 96 100 100 09/02/19 17:00 09/02/19 17:40 Temperature Pulse Rate 71 72 Respiratory Rate 16 16 Blood Pressure Blood Pressure [Right Arm] 109/64 121/76 Pulse Oximetry 100 94 Oxygen Delivery Method Room Air Narrative Exam Narrative: Patient has temperature of 99.2?. His I's and throat are normal Lungs are clear with no rales or wheezes Heart regular rhythm no murmur Abdomen soft in the upper quadrants with exquisite tenderness in the right lower quadrant. There is guarding and mild to moderate rebound tenderness in the right lower quadrant. Remaining physical is unremarkable. Objective Labs Result Diagrams: 09/02/19 16:16 09/02/19 16:16 Labs: Laboratory Results - last 24 hr 09/02/19 09/02/19 09/02/19 16:16 16:16 16:16 WBC 12.8 H RBC 4.17 Hgb 11.6 L Hct 34.6 L MCV 82.9 MCH 27.7 MCHC 33.5 RDW 12.8 Plt Count 383 Neut % (Auto) 67.3 Lymph % (Auto) 22.9 L [place] % (Auto) 7.6 Eos % (Auto) 1.2 L Baso % (Auto) 1.0 Neut # (Auto) 8600 H Lymph # (Auto) 2900 [place] # (Auto) 1000 H Eos # (Auto) 200 Baso # (Auto) 100 Sodium 135 L Potassium 3.9 Chloride 98 Carbon Dioxide 25 BUN 12 Creatinine 0.60 Estimated GFR > 60.0 BUN/Creatinine Ratio 20.0 Glucose 92 Lactate 0.9 Calcium 9.2 Total Bilirubin 0.7 AST 17 ALT 19 Alkaline Phosphatase 105 C-Reactive Protein 18.1 H Total Protein 6.8 Albumin 3.8 Globulin 3.0 Albumin/Globulin Ratio 1.3 Lipase 25 Assessment & Plan Assessment & Plan narrative: I have reviewed this patient's CT scan which indeed shows an inflammatory mass adjacent to the cecum. Mass itself is about the size of the cecum. I do not see the appendix which likely is within the mass. I believe the patient has a ruptured appendix with a pericecal abscess. Plan is to explore her abdomen drain an abscess in the right lower quadrant and do an appendectomy. Patient and her daughter understand and agree with the plan and have no unanswered questions.
[2019-09-02] MEDS: LACTATED RINGERS 1,000 ML 42 ML IV ×2 (18:15→18:56)
--- NOTE | 2019-09-02 18:32 | SUR.OPER ---
Supine on padded OR bed, head on pillow, arms secured on padded arm boards at <90 degrees abduction, legs uncrossed, safety belt at thigh, tape over blanket over lower legs.
[2019-09-02] MEDS: BUPIVACAINE 0.5% W/ EPI (PF) 10 ML VIAL 20 ML INJ (18:50)
[2019-09-02] MEDS: SODIUM CHLORIDE IRRIG SOLUTION 1,000 ML, BACITRACIN 50,000 UNIT IRR (18:56)
--- NOTE | 2019-09-02 19:17 | PM.OP.1 ---
Operative Date/Time/Diagnoses Date of procedure: 09/02/19 Time of procedure: 19:17 Pre-op diagnosis: Acute ruptured appendicitis with pelvic abscess Procedure & Clinicians Procedure: Appendectomy with drainage of pelvic abscess Same procedure as scheduled: Yes Surgeon: Ty Polk Click Yes if Unassisted: Yes Anesthesia Type: General Operative Notes Findings: Dense rock-hard pelvic abscess with thick pus contained therein incorporated with it a ruptured appendix Closure Type: primary Specimen(s): other (Ruptured appendix and cultures of abscess) Estimated Blood Loss (mL): 50 Blood products transfused: none Procedure in detail: The patient was properly identified during surgical pause she was given a general endotracheal anesthetic prepped and draped in sterile fashion exposure of the right lower abdomen. He standard Messi-Adair incision was made and the oblique muscles split in the grid iron fashion over McBurney's point. The peritoneum was elevated and entered so as to avoid injury to the underlying structures. The cecum was rotated in the wound. Patient was found to have a rock-hard Chadwick sized abscess just medial and below the cecum involving the wall of the terminal ileum the wall of the cecum. The appendix was entrapped in that abscess and had ruptured. The abscess was as hard as a rock. I broke through it with my finger and obtained thick copious pus which was cultured for aerobes and anaerobically. Using 2 L of bacitracin saline I irrigated the abscess until there was no more purulence. It was difficult to identify the entire appendix but I elevated and dissected away from the wall of the abscess down to the base at its at the cecum. I divided the mesoappendix and ligated the vessels with 2 0 Vicryl there was excellent hemostasis. I closed the base of the appendix with a TA 30? staple right at the cecum. Again I irrigated the right gutter and abscess cavity and there was no further purulence nor was there any bleeding. I placed a 10 mm Benoit Saini drain through a stab wound inferior to the incision and placed it into the abscess cavity. The drain was sutured to the skin with fine nylon. Peritoneum was closed with a running 2 0 Vicryl. The fascia closed with running 1. PDS. The subcu irrigated with bacitracin saline the skin stapled loosely. Procedure was well tolerated sterile dressings applied Complications: none Post-operative Condition: stable Disposition: PACU
[2019-09-02] MEDS: HYDROMORPHONE 2 MG INJ IV ×2 (19:46→20:02)
[2019-09-02] MEDS: ONDANSETRON 4 MG/2 ML INJ IV (19:47)
--- NOTE | 2019-09-02 20:42 | SUR.PHASEI ---
Transferred patient to room 212 with all belongings. VSS. Report given to PRAKASH Rangel. Family at bedside and supportive.
[2019-09-02] MEDS: raNITIdine 150 MG CAPSULE PO (21:22)
[2019-09-02] MEDS: GABAPENTIN 300 MG CAPSULE PO (21:22)
[2019-09-02] MEDS: SIMETHICONE 80 MG TABLET PO (21:22)
[2019-09-02] MEDS: SODIUM CHLORIDE 0.9% 1,000 ML 125 ML IV (21:24)
[2019-09-02] MEDS: ACETAMINOPHEN 325 MG TABLET 650 MG PO (23:49)
--- NOTE | 2019-09-02 23:58 | PC.NURSE ---
Marleen shift note: 2030 Received patient from PACU. s/p open Appy, awake, alert, and pleasant. Oriented to room, environment, and plan of care. Call light within reach, call appropriately for staff assistance.
[2019-09-03] MEDS: PIPERACILLIN-TAZO 3.375 GM/50 ML FROZ.PIGGY IV ×4 (01:43→20:09)
[2019-09-03 04:52] VITALS: BP 108/70; PULSE 60; RESP 18; TEMP 36.3; O2SAT 99
--- NOTE | 2019-09-03 06:23 | PC.NURSE ---
Pt is doing well; reports moderate pain relieved with tylenol. Pt not wanting to take narcotics last night due to fear of getting nauseous. Voiding in bed lopez. NS@125mL/hr kept on clear liquids overnight RONAL=30mL
[2019-09-03 06:31] LABS: Add Manual Diff / Slide Review NO; Basophils Absolute Auto 100 /uL (0-100); Basophils Percent Auto 0.5 % (0-2); Eosinophils Absolute Auto 0 /uL (0-450); Hematocrit 34.6 % (36-46); Hemoglobin 11.5 g/dL (12.0-16.0); Lymphocytes Absolute Auto 1100 /uL (1100-4500); Lymphocytes Percent Auto 7.9 % (25-40); Mean Corpuscular HGB Conc 33.1 % (30-36); Mean Corpuscular Hemoglobin 27.5 PG (26-34); Mean Corpuscular Volume 83.1 fL (80-100); Monocytes Absolute Auto 700 /uL (0-900); Monocytes Percent Auto 4.8 % (3-14); Neutrophils Absolute Auto 12100 /uL (1500-7000); Neutrophils Percent Auto 86.8 % (50-75); Platelet Count 367 X10^3/uL (150-400); Red Blood Cell Count 4.17 X10^6/uL (4.0-5.2); Red Cell Distribution Width 13.2 % (11.6-14.8); White Blood Cell Count 13.9 X10^3/uL (4.5-11.0)
[2019-09-03] MEDS: ACETAMINOPHEN 325 MG TABLET 650 MG PO ×2 (06:35→15:07)
[2019-09-03] MEDS: SODIUM CHLORIDE 0.9% 1,000 ML 125 ML IV ×2 (06:37→15:06)
[2019-09-03 08:54] VITALS: BP 124/72; PULSE 46; RESP 16; TEMP 36.4; O2SAT 100
--- NOTE | 2019-09-03 09:23 | P.PN_ITS ---
Subjective Subjective Date Patient Seen: 09/03/19 Time Patient Seen: 09:23 Interval history: Patient is about 12 hours postop appendectomy and drainage of pelvic abscess for a ruptured appendix with the rather large pelvic abscess. Subjectively she feels better than before surgery. She has no nausea or vomiting is tolerating clear liquids. Exam Vital Signs (past 8 hours): - 09/03/19 04:52 Temperature 97.3 F L Pulse Rate 60 Respiratory Rate 18 Blood Pressure 108/70 Pulse Oximetry 99 Oxygen Delivery Method Room Air Oxygen Flow Rate 0 Narrative Exam Narrative: Patient is afebrile Abdomen fairly soft with expected amount of incisional tenderness Benoit-Saini drain producing a mild to moderate amount of clear serosanguineous fluid which is not purulence Objective Labs Result Diagrams: 09/03/19 06:18 09/02/19 16:16 Labs: Laboratory Results - last 24 hr 09/02/19 09/02/19 09/02/19 16:16 16:16 16:16 WBC 12.8 H RBC 4.17 Hgb 11.6 L Hct 34.6 L MCV 82.9 MCH 27.7 MCHC 33.5 RDW 12.8 Plt Count 383 Neut % (Auto) 67.3 Lymph % (Auto) 22.9 L [place] % (Auto) 7.6 Eos % (Auto) 1.2 L Baso % (Auto) 1.0 Neut # (Auto) 8600 H Lymph # (Auto) 2900 [place] # (Auto) 1000 H Eos # (Auto) 200 Baso # (Auto) 100 Sodium 135 L Potassium 3.9 Chloride 98 Carbon Dioxide 25 BUN 12 Creatinine 0.60 Estimated GFR > 60.0 BUN/Creatinine Ratio 20.0 Glucose 92 Lactate 0.9 Calcium 9.2 Total Bilirubin 0.7 AST 17 ALT 19 Alkaline Phosphatase 105 C-Reactive Protein 18.1 H Total Protein 6.8 Albumin 3.8 Globulin 3.0 Albumin/Globulin Ratio 1.3 Lipase 25 09/03/19 06:18 WBC 13.9 H RBC 4.17 Hgb 11.5 L Hct 34.6 L MCV 83.1 MCH 27.5 MCHC 33.1 RDW 13.2 Plt Count 367 Neut % (Auto) 86.8 H Lymph % (Auto) 7.9 L [place] % (Auto) 4.8 Eos % (Auto) 0.0 L Baso % (Auto) 0.5 Neut # (Auto) 82438 H Lymph # (Auto) 1100 [place] # (Auto) 700 Eos # (Auto) 0 Baso # (Auto) 100 Sodium Potassium Chloride Carbon Dioxide BUN Creatinine Estimated GFR BUN/Creatinine Ratio Glucose Lactate Calcium Total Bilirubin AST ALT Alkaline Phosphatase C-Reactive Protein Total Protein Albumin Globulin Albumin/Globulin Ratio Lipase Assessment & Plan Assessment & Plan narrative: Patient is recovering from appendectomy with drainage of a large pelvic abscess. She is afebrile today. We will continue IV antibiotic therapy. She is on Lovenox for DVT prophylaxis she is getting up to ambulate today.
[2019-09-03] MEDS: ENOXAPARIN 40 MG/0.4 ML SYRINGE SUBCUT (10:06)
[2019-09-03] MEDS: SIMETHICONE 80 MG TABLET PO ×4 (10:07→20:10)
[2019-09-03] MEDS: GABAPENTIN 300 MG CAPSULE PO ×2 (10:07→20:08)
[2019-09-03] MEDS: raNITIdine 150 MG CAPSULE PO ×2 (10:07→20:08)
--- NOTE | 2019-09-03 10:46 | PC.NURSE ---
Addendum entered by Adeal Rasheed R.N. 09/03/19 15:38: Patient medicated with tylenol and iv antibiotic just about done infusing. She ambulated in the halls again and did well. Addendum entered by Adela Rasheed R.N. 09/03/19 14:36: Pt just ambulated in the halls. Her IVF has been decreased per order this morning. She is resting comfortably and voided 450cc of yellow urine in the bathroom. Original Note: Assess- Patient is awake and denies pain at this time. She has a bulky dressing to her r.lower abdomen that is cdi. Patients bt +x4 but hypoactive. RONAL drain present with bloody drainage present. Patient up and ambulated in halls. Family will be back later to see patient.
[2019-09-03 12:19] VITALS: BP 103/64; PULSE 60; RESP 16; TEMP 36.6; O2SAT 100
[2019-09-03 15:40] VITALS: BP 126/85; PULSE 68; RESP 16; TEMP 36.9; O2SAT 100
[2019-09-03] MEDS: ONDANSETRON 4 MG/2 ML INJ IV (18:12)
[2019-09-03 19:59] VITALS: BP 123/73; PULSE 72; RESP 16; TEMP 37.3; O2SAT 99
[2019-09-03] MEDS: OXYCODONE/ACETAMINOPHEN 5/325 TABLET 1 TAB PO (20:08)
[2019-09-04] VITALS (9 sets, daily range): BP systolic 102–119; BP diastolic 53–71; PULSE 65–68; RESP 10–18; TEMP 36.6–37.4; O2SAT 96–100
[2019-09-04] MEDS: PIPERACILLIN-TAZO 3.375 GM/50 ML FROZ.PIGGY IV ×4 (02:02→20:05)
[2019-09-04] MEDS: ACETAMINOPHEN 325 MG TABLET 650 MG PO ×2 (04:17→15:03)
[2019-09-04] MEDS: SODIUM CHLORIDE 0.9% 1,000 ML 75 ML IV ×2 (06:14→20:22)
[2019-09-04] MEDS: ENOXAPARIN 40 MG/0.4 ML SYRINGE SUBCUT (08:52)
[2019-09-04] MEDS: SIMETHICONE 80 MG TABLET PO ×4 (08:53→20:13)
[2019-09-04] MEDS: raNITIdine 150 MG CAPSULE PO ×2 (08:53→20:13)
[2019-09-04] MEDS: GABAPENTIN 300 MG CAPSULE PO ×2 (08:53→20:13)
--- NOTE | 2019-09-04 08:54 | PM.PN.1 ---
Subjective Subjective Date Patient Seen: 09/04/19 Time Patient Seen: 08:54 Interval history: Patient is a 48 hours post appendectomy drainage of pelvic abscess for ruptured appendix with a pelvic abscess. Subjectively she feels well today however she had vomiting last night. She is taking sips of clear liquids this morning. She has had no flatus or bowel movement. Exam Vital Signs (past 8 hours): - 09/04/19 03:53 Temperature 98.4 F Pulse Rate 65 Respiratory Rate 16 Blood Pressure 116/53 L Pulse Oximetry 100 Oxygen Delivery Method Room Air Oxygen Flow Rate 0 Narrative Exam Narrative: Patient is afebrile and has been afebrile since surgery. Lungs are clear Abdomen soft and just slightly distended. Incision is healing beautifully with no inflammatory changes no erythema or drainage. Benoit-Saini drain has moderate amount of serosanguineous fluid. Objective Labs Result Diagrams: 09/03/19 06:18 09/02/19 16:16 Assessment & Plan Assessment & Plan narrative: Patient is 2 days post drainage of a pelvic abscess and appendectomy. She still has a paralytic ileus. We will continue IV fluids a lower to have sips of clear liquid diet. We will start Dulcolax suppositories and Raglan IV. She had a copious amount of serosanguineous drainage from the Benoit drain over the last 24 hours about 400 cc. The drain will stay in place. Continue IV antibiotic therapy.
--- NOTE | 2019-09-04 11:03 | PC.NURSE ---
Patients dressing to lower r.abdomen changed around val drain and incision. 4x4's and tegaderm applied. O nausea, Pt resting comfortably and sitting up in chair.
--- NOTE | 2019-09-04 13:36 | CM.DANOTE ---
DCP Assessment: EMR Reviewed: Patient is a pleasant 64 yr old female who was admitted as an IP for a Ruptured appendix. Patient had surgery on 09/02/2019 and drain placed. Patients PCP is Dr Alfred. Cm/RN met with patient and patients daughter Lisa at the bed side and explained role. Patient was alert and oriented x3 at time of visit. Patient is I at [place] with all ADL's and driving. Patient currently lives in [place] in a single level home with two to three step to get into the home. Patient does not have DME- FWW at home but has been using one here. Cm/RN let patient and patients daughter about [facility] to borrow a FWW. Daughter (Lisa) plans to look into that. CM/RN spoke with patients nurse about patient ability to ambulate. patients nurse stated patient has been walking well with walker up and down halls. CM/RN will discuss with provider patient need for PT to help with stairs prior to patient D/C home. I: Medicare and [employer] Preferred. Plan: D/C home with significant other (Moises). Patients family will be getting FWW from [facility]. No identified D/C planning needs noted at this time. CM department will follow to assist with any new D/C planning needs that may arise. Kady Joy RN Discharge Planning/Care Management CM Discharge Assessment Start: 09/04/19 13:30 Freq: Status: Active Protocol: Document 09/04/19 13:31 HS (Rec: 09/04/19 13:36 HS [id number]) Discharge Planning Assessment Assigned Inhalation Therapy Aide Kady Joy RN DPOA/Assigned Designee Name Lisa Moise (daughter) Contact Information [phone] Advance Directives? No History Provided By Patient,Family Member,Medical Record Has Patient been admitted in last 30 No days? Prior Living Arrangements House Household Members significant other,family Comment Patients significant other - Moises Conti Type of transporation used prior to Drives own vehicle admit Independent with ADL's Yes Is patient alert and oriented? Yes Caregiver for Another No Comment Patient given information about borrowing a FWW from [facility] in [place]. Barriers to Discharge No Discharge Plan Home Transportation Arrangement transport will be provided by family Referrals Initiated None needed Whiteboard Updated in Patient Room with Yes name and ext. # of Inhalation Therapy Aide Review Status In Process Next Review Type Continued Stay Review
[2019-09-04] MEDS: METOCLOPRAMIDE 10 MG/2 ML INJ IV (20:13)
[2019-09-05] VITALS (8 sets, daily range): BP systolic 121–131; BP diastolic 75–81; PULSE 68–72; RESP 16–18; TEMP 36.6–36.9; O2SAT 96–98
[2019-09-05] MEDS: PIPERACILLIN-TAZO 3.375 GM/50 ML FROZ.PIGGY IV ×4 (02:24→20:04)
--- NOTE | 2019-09-05 06:14 | PC.NURSE ---
Denies abdominal pain & nausea, declined routine Reglan 0600 dose. Will cont. POC & monitor.
[2019-09-05] MEDS: ENOXAPARIN 40 MG/0.4 ML SYRINGE SUBCUT (08:04)
[2019-09-05] MEDS: GABAPENTIN 300 MG CAPSULE PO ×2 (08:05→20:04)
[2019-09-05] MEDS: METOCLOPRAMIDE 10 MG/2 ML INJ IV ×4 (08:05→21:49)
[2019-09-05] MEDS: raNITIdine 150 MG CAPSULE PO ×2 (08:05→20:04)
[2019-09-05] MEDS: ACETAMINOPHEN 325 MG TABLET 650 MG PO ×2 (09:17→23:40)
[2019-09-05] MEDS: SIMETHICONE 80 MG TABLET PO ×4 (09:23→20:04)
--- NOTE | 2019-09-05 09:54 | P.PN_ITS ---
Subjective Subjective Date Patient Seen: 09/05/19 Time Patient Seen: 09:54 Interval history: Patient is 2 days post appendectomy drainage of pelvic abscess for ruptured appendix with pelvic abscess. Subjectively she feels minimal abdominal pain but is not feeling well overall. States that she feels a bit sluggish. She has a had a bowel movement and she is passing flatus. Tolerating clear liquids with no nausea or vomiting. Exam Vital Signs (past 8 hours): - 09/05/19 03:30 09/05/19 07:30 Temperature 98.2 F 97.9 F Pulse Rate 72 71 Respiratory Rate 18 18 Blood Pressure 121/76 131/80 Pulse Oximetry 97 96 Oxygen Delivery Method Room Air Oxygen Flow Rate 0 Narrative Exam Narrative: Patient is afebrile. Abdomen is soft with minimal distention. Incision is healing nicely with no erythema. Benoit drain is producing clear serosanguineous fluid which is not purulence. Objective Labs Result Diagrams: 09/03/19 06:18 09/02/19 16:16 Assessment & Plan Assessment & Plan narrative: Patient appears to be recovering from appendectomy drainage of pelvic abscess. She has some presybeterian of GI function. She is still draining a fair amount from that Benoit drain 200 cc last night. Plan is to continue the drain advance her diet to full liquids. Her IV fluids. She is ambulating in the halls.
[2019-09-05] MEDS: LEVOTHYROXINE 100 MCG TABLET PO (13:27)
--- NOTE | 2019-09-05 13:52 | PC.NURSE ---
Surgical dressing was partially removed by surgeon when he saw patient. Assisted to change dressing to incision and drain site. cleansed with saline, patted dry, and then gauze with tegaderm applied back to site. Incision was well approximated, without redness or drainage with carroll in place. Bulb drain insertion site intact, bulb compressed. Patient tolerated well. Call light within reach.
--- NOTE | 2019-09-05 15:58 | PC.NURSE ---
Post-op: Explained reason for reglan to pt. Given info on ileus. she expressed understanding. Did get 2 doses of reglan today and reported she was feeling better this afternoon. Did take small amt of diet. Passing flatus, no bm but has had one. Has had some nausea off and on but since getting reglan routine has been free of nausea. has been up in the chair x2 and amb out in the hallways x2. Diet advanced to full liq and she is tolerating it w/out problems. Tylenol only given for pain. Pt reports it is effective.
[2019-09-05] MEDS: SODIUM CHLORIDE 0.9% FLUSH 10 ML IV (20:04)
--- NOTE | 2019-09-05 23:42 | PC.NURSE ---
pt's ORNAL had 75cc out, yellow. pt ambulated in hallways several times. pt passed gas. no bm. dressing cdi, compressed. pain 07/31. bt hypo. pt tolerated her full liquid diet. call light in reach.
[2019-09-06] VITALS (8 sets, daily range): BP systolic 102–122; BP diastolic 74–81; PULSE 67–76; RESP 16; TEMP 36.3–36.8; O2SAT 96–100
[2019-09-06] MEDS: PIPERACILLIN-TAZO 3.375 GM/50 ML FROZ.PIGGY IV ×4 (02:29→21:05)
[2019-09-06 05:48] LABS: Add Manual Diff / Slide Review NO; Basophils Absolute Auto 0 /uL (0-100); Basophils Percent Auto 0.5 % (0-2); Eosinophils Absolute Auto 200 /uL (0-450); Eosinophils Percent Auto 2.5 % (2-4); Hematocrit 32.5 % (36-46); Hemoglobin 11.1 g/dL (12.0-16.0); Lymphocytes Absolute Auto 2500 /uL (1100-4500); Lymphocytes Percent Auto 30.3 % (25-40); Mean Corpuscular HGB Conc 34.2 % (30-36); Mean Corpuscular Hemoglobin 28.4 PG (26-34); Mean Corpuscular Volume 82.9 fL (80-100); Monocytes Absolute Auto 500 /uL (0-900); Monocytes Percent Auto 6.4 % (3-14); Neutrophils Absolute Auto 5000 /uL (1500-7000); Neutrophils Percent Auto 60.3 % (50-75); Platelet Count 459 X10^3/uL (150-400); Red Blood Cell Count 3.92 X10^6/uL (4.0-5.2); Red Cell Distribution Width 13.5 % (11.6-14.8); White Blood Cell Count 8.3 X10^3/uL (4.5-11.0)
[2019-09-06] MEDS: LEVOTHYROXINE 100 MCG TABLET PO (06:29)
[2019-09-06] MEDS: METOCLOPRAMIDE 10 MG/2 ML INJ IV ×3 (06:29→21:05)
[2019-09-06] MEDS: SODIUM CHLORIDE 0.9% FLUSH 10 ML IV ×2 (06:30→09:02)
[2019-09-06] MEDS: raNITIdine 150 MG CAPSULE PO ×2 (08:59→21:04)
[2019-09-06] MEDS: SIMETHICONE 80 MG TABLET PO ×4 (08:59→21:04)
[2019-09-06] MEDS: ENOXAPARIN 40 MG/0.4 ML SYRINGE SUBCUT (09:00)
[2019-09-06] MEDS: GABAPENTIN 300 MG CAPSULE PO ×2 (09:01→21:04)
--- NOTE | 2019-09-06 10:13 | PC.NURSE ---
PATIENT OFFERS NO COMPLAINTS. REPORTS HAD BM APPROX 0600. DRSG CDI. RONAL COMPRESSED W/ SCANT SEROUS/SANG DRAINAGE. STEADY ON FEET. LOW FALL RISK. CLEARED PATIENT TO AMBULATE MUCH SHE'D LIKE IN HALLS. ENCOURAGED SAME. PATIENT AGREEABLE AND HAS AMBULATED IN HALLS W/ WALKER THIS MORNING.
--- NOTE | 2019-09-06 10:26 | PC.NURSE ---
PATIENT DENIES PAIN THIS MORNING AND IS CLEARED TO AMBULATE IN THE HALLWAYS INDEPENDENTLY. DRESSING TO ABDOMEN C/D/I WITH RONAL DRAIN SEROSANGUINEOUS DRAINAGE. PATIENT STATES ABDOMEN NON TENDER, PATIENT ABLE TO HAVE BM AT 0600 THIS AM. NO COMPLAINTS OF NAUSEA, DISCOMFORT.
--- NOTE | 2019-09-06 15:22 | PM.PN.1 ---
Subjective Subjective Date Patient Seen: 09/06/19 Time Patient Seen: 15:25 Interval history: patient is 3 days post appendectomy and drainage of pelvic abcesss. feels better today, has had BM, tolerating diet with no nausea. Exam Vital Signs (past 8 hours): - 09/06/19 10:38 09/06/19 13:00 Temperature 98.2 F 98 F Pulse Rate 76 75 Respiratory Rate 16 16 Blood Pressure 102/79 117/76 Pulse Oximetry 100 100 Oxygen Delivery Method Room Air Oxygen Flow Rate 0 Narrative Exam Narrative: afebrile, minimal pain abdomen soft with normal incisional tenderness wound looks good with no infection. drain still has fair amount of serous drainage Objective Labs Result Diagrams: 09/06/19 05:30 09/02/19 16:16 Labs: Laboratory Results - last 24 hr 09/06/19 05:30 WBC 8.3 RBC 3.92 L Hgb 11.1 L Hct 32.5 L MCV 82.9 MCH 28.4 MCHC 34.2 RDW 13.5 Plt Count 459 H Neut % (Auto) 60.3 Lymph % (Auto) 30.3 [place] % (Auto) 6.4 Eos % (Auto) 2.5 Baso % (Auto) 0.5 Neut # (Auto) 5000 Lymph # (Auto) 2500 [place] # (Auto) 500 Eos # (Auto) 200 Baso # (Auto) 0 Assessment & Plan Assessment & Plan narrative: patient recovering well. am reluctant to remove drain while 200 cc output in 24 hours. will continue IV ABX another day hopefully drain will slow and she can be discharged after drain removed in another day or so
--- NOTE | 2019-09-06 16:05 | CM.DPC ---
DCP Cont: Plan is for home when patient is medically cleared by surgeon and tolerating diet. She has been ambulating in hallways. P: DCP to continue to follow for any resources needed. Birgit Olivo RN/Radio Repairer
[2019-09-07] VITALS (8 sets, daily range): BP systolic 106–128; BP diastolic 67–82; PULSE 64–82; RESP 16–18; TEMP 35.9–37.1; O2SAT 96–99
[2019-09-07] MEDS: PIPERACILLIN-TAZO 3.375 GM/50 ML FROZ.PIGGY IV ×4 (02:22→21:43)
[2019-09-07] MEDS: METOCLOPRAMIDE 10 MG/2 ML INJ IV ×2 (05:57→21:46)
[2019-09-07] MEDS: LEVOTHYROXINE 100 MCG TABLET PO (05:58)
--- NOTE | 2019-09-07 06:22 | PC.NURSE ---
15ml yellow drainage from RONAL drain overnight.
[2019-09-07] MEDS: GABAPENTIN 300 MG CAPSULE PO ×2 (08:49→21:46)
[2019-09-07] MEDS: SIMETHICONE 80 MG TABLET PO ×2 (08:49→21:45)
[2019-09-07] MEDS: raNITIdine 150 MG CAPSULE PO ×2 (08:50→21:44)
[2019-09-07] MEDS: SODIUM CHLORIDE 0.9% FLUSH 10 ML IV (08:50)
[2019-09-07] MEDS: ENOXAPARIN 40 MG/0.4 ML SYRINGE SUBCUT (08:50)
--- NOTE | 2019-09-07 17:21 | PC.NURSE ---
Addendum entered by Fozia Dunaway R.N. 09/07/19 20:26: Patient up amb room and in chair most shift. incisional pain level 1/10 with movement refuses any pain meds. voiding wnl, using IS apropriately, val emptied with 15cc SS fluid, compressed. drsg cdi awaiting to be seen by surgeon. Original Note: Patient amb in [place] with sister using walker. steady denies pain.
--- NOTE | 2019-09-07 20:33 | PM.PNPO.1 ---
Subjective Subjective Date Patient Seen: 09/07/19 Time Patient Seen: 20:19 Interval history: Patient post removal of her appendix and drainage of a pelvic abscess. She is feeling pretty well. She is a little sore but feels much better than she did preop. She no longer has diffuse abdominal pain. She is eating okay without nausea. Has had bowel movements. Exam Vital Signs (past 8 hours): - 09/07/19 15:34 09/07/19 19:00 Temperature 98.5 F Pulse Rate 64 Respiratory Rate 17 Blood Pressure 106/76 Pulse Oximetry 97 97 Oxygen Delivery Method Room Air Oxygen Flow Rate 0 Narrative Exam Narrative: Lungs are clear throughout. Good effort. Heart regular rate and rhythm without murmur gallop. Abdomen is soft no unusual tenderness dressing is dry intact drainage is serous. Objective Labs Result Diagrams: 09/06/19 05:30 09/02/19 16:16 Assessment & Plan Post-op Postoperative Procedures: Procedures Operation Date: 09/02/19 18:20 Actual Procedures Side Surgeon p Appendectomy Ty Polk MD Postoperative status: doing well Postoperative plan narrative: Will probably remove the drain in the morning. Re-evaluate with laps. May be able to go home soon. Continue IV antibiotics at this time
[2019-09-08] MEDS: PIPERACILLIN-TAZO 3.375 GM/50 ML FROZ.PIGGY IV ×3 (02:38→14:14)
[2019-09-08 06:27] LABS: Add Manual Diff / Slide Review NO; Basophils Absolute Auto 100 /uL (0-100); Basophils Percent Auto 0.7 % (0-2); Eosinophils Absolute Auto 200 /uL (0-450); Eosinophils Percent Auto 2.8 % (2-4); Hematocrit 33.9 % (36-46); Hemoglobin 11.5 g/dL (12.0-16.0); Lymphocytes Absolute Auto 2000 /uL (1100-4500); Lymphocytes Percent Auto 23.1 % (25-40); Mean Corpuscular Volume 82.5 fL (80-100); Monocytes Absolute Auto 600 /uL (0-900); Monocytes Percent Auto 7.2 % (3-14); Neutrophils Absolute Auto 5800 /uL (1500-7000); Neutrophils Percent Auto 66.2 % (50-75); Platelet Count 497 X10^3/uL (150-400); Red Blood Cell Count 4.11 X10^6/uL (4.0-5.2); Red Cell Distribution Width 13.2 % (11.6-14.8); White Blood Cell Count 8.7 X10^3/uL (4.5-11.0)
[2019-09-08 06:29] VITALS: BP 121/73; PULSE 66; RESP 16; TEMP 37.1; O2SAT 96
[2019-09-08] MEDS: LEVOTHYROXINE 100 MCG TABLET PO (06:37)
[2019-09-08 06:57] LABS: Procalcitonin < 0.05 ng/mL (<0.5)
[2019-09-08] MEDS: SODIUM CHLORIDE 0.9% FLUSH 10 ML IV ×2 (08:47→14:15)
[2019-09-08] MEDS: ENOXAPARIN 40 MG/0.4 ML SYRINGE SUBCUT (08:47)
[2019-09-08] MEDS: SIMETHICONE 80 MG TABLET PO ×3 (08:47→17:08)
[2019-09-08] MEDS: GABAPENTIN 300 MG CAPSULE PO (08:48)
[2019-09-08] MEDS: raNITIdine 150 MG CAPSULE PO (08:48)
[2019-09-08 08:53] VITALS: BP 103/78; PULSE 73; RESP 18; TEMP 36.7; O2SAT 98
[2019-09-08 09:07] VITALS: O2SAT 99
[2019-09-08 09:45] VITALS: O2SAT 98
[2019-09-08 15:09] VITALS: BP 107/59; PULSE 77; RESP 16; TEMP 36.7; O2SAT 100
--- NOTE | 2019-09-08 16:07 | PC.NURSE ---
Day Shift- Pt A&OX4, able to make needs known using call light. Ambulating in room and halls indep with steady gait. Dr. Avelar removed RONAL drain around 919. Upon reassessment, pt denied any pain, states uncomfortable at times, no prn's needed at this time. RLQ abd 4X4 gauze dressing CDI. Abd soft, non tender, pt denies bloating, states improved over last couple days. Denies nausea, tolerating full liquid diet. States had soft BM today, voiding qs. Possible discharge today versus tomorrow. Pt awaiting Dr. Avelar reassessment later today.
--- NOTE | 2019-09-08 17:13 | PM.DS.1 ---
History of Present Illness History of Present Illness Date Patient Seen: 09/08/19 Time Patient Seen: 17:14 Chief complaint: abdominal pain Narrative: The patient is a woman admitted with chronic abdominal pain that she thought was due to the flu. She was found to have a pelvic abscess and was taken to the operating room. Discharge Providers Provider Date of admission: 09/02/19 17:24 Discharge Date: 09/08/19 Primary care physician: Jessica Alfred MD Consults: 09/02/19 20:25 Consult to Discharge Planning Routine Comment: Discharge provider: Truong Avelar MD Summary Hospital Course Discharge Diagnosis: Perforated appendicitis with pelvic abscess acute Chronic hypothyroidism Hospital Course: The patient underwent appendectomy and drainage of the abscess. Her postoperative course was very smooth. She had drain removed the day of her discharge. She was tolerating a general diet and having bowel movements. She had been afebrile for several days. Her white blood cell count and differential were normal at discharge. Her procalcitonin is within normal limits. Status at Discharge Cognitive/behavioral status at discharge: oriented Functional status at discharge: independent ambulation Overall status at discharge: patient is progressing back to baseline Exam Vital Signs (past 8 hours): - 09/08/19 09:45 09/08/19 15:09 Temperature 98.1 F Pulse Rate 77 Respiratory Rate 16 Blood Pressure 107/59 L Pulse Oximetry 98 100 Oxygen Delivery Method Room Air Oxygen Flow Rate 0 Narrative Exam Narrative: Lungs are clear to auscultation with excellent effort. Heart regular rate and rhythm without murmur gallop. Abdomen is soft mildly protuberant nontender. Incision is intact without cellulitis. There is no drainage. Objective Labs Result Diagrams: 09/08/19 06:00 09/02/19 16:16 Labs: Laboratory Results - last 24 hr 09/08/19 09/08/19 06:00 06:00 WBC 8.7 RBC 4.11 Hgb 11.5 L Hct 33.9 L MCV 82.5 MCH 28.0 MCHC 34.0 RDW 13.2 Plt Count 497 H Neut % (Auto) 66.2 Lymph % (Auto) 23.1 L [place] % (Auto) 7.2 Eos % (Auto) 2.8 Baso % (Auto) 0.7 Neut # (Auto) 5800 Lymph # (Auto) 2000 [place] # (Auto) 600 Eos # (Auto) 200 Baso # (Auto) 100 Procalcitonin < 0.05 Discharge Plan Discharge Plan Patient Disposition: Home Discharge orders & Medications Prescriptions: New levofloxacin [Levaquin] 500 mg tablet 500 mg PO DAILY Qty: 5 RF: 0 metronidazole [Flagyl] 500 mg tablet 500 mg PO TID Qty: 14 RF: 0 Continued LEVOTHYROXINE SODIUM (Synthroid) 100 mcg PO Q DAY Qty: 0 RF: 0 cholecalciferol (vitamin D3) [Vitamin D3] 50 mcg (2,000 unit) Capsule 2,000 unit PO DAILY RF: 0 Follow up/Referrals: Truong Avelar MD [Physician] - 1 Week (Please call my office and make an appointment to see me in about a week. If you need to reach a doctor please call our office. If it is after hours listen to the entire message on at the end you will be connected with the page continuous dryout operator helper who will page the doctor on-call.) Jessica Alfred MD [Primary Care Provider] - Discharge Health Status Multidrug resistant organism: No MDRO Diet/Activity/Treatments Diet: Diet as Tolerated Activity: Do not lift over 10 lb or strain for the next 3 weeks. You may walk. Do not drive until pain free off medication. Skin/Wound/Dressing Care Report to your healthcare provider any signs of infection, such as:: chills, fever, night sweats, increased pain, unusual drainage and unusual redness Dressing: You may remove the dressing tomorrow and shower. Keep a bandage on the drain site as long as it is draining. No pool or tub for at least 2 weeks. Visit Report/Discharge Packet Instructions: Ileus, DI for an Appendectomy Visit Report Forms: Patient Portal/API, Stroke Signs & Symptoms Discharge Data Primary Care Provider: Jessica Alfred Discharges patient from system. Discharge Date/Time: 09/08/19 18:20
[2019-09-08 17:33] VITALS: O2SAT 97
== END 2019-09-08 18:20 | disposition home or self-care (01) | DRG 339 ==
LOC: ED 16:16 → AC 17:28
PROVIDERS: Specialist; Admitting Provider Surgery; Emergency Provider Internal Medicine; PCP Family Medicine; Referring Provider Family Medicine; Visit Provider Surgery
PROC: 0DTJ0ZZ Resection of Appendix, Open Approach (ICD-10-PCS; CPT 44950; principal; 2019-09-02 18:20)
DX: K35.33 Acute appendicitis with perforation, localized peritonitis, and gangrene, with abscess (principal); K56.7 Ileus, unspecified; E03.9 Hypothyroidism, unspecified
CPT/HCPCS: 36415; 44960; 74177; 80053; 81001; 83605; 83690; 84145; 85025; 85651; 86140; 87070; 87075; 87077; 87086; 87185; 87186; 87205; 96361; 96365; 96375; 99222; 99284; J0330; J1100; J1170; J1650; J1885; J2405; J2543; J2704; J2765; J3010; Q9967

== ENCOUNTER → 2020-05-19 14:45 | Outpatient (CLI) | payer MEDICARE, OTHER, SELFPAY ==
[2019-09-02 21:56] VITALS: BMI 23.7
== END ==
PROVIDERS: PCP Family Medicine; Referring Provider Family Medicine; Visit Provider Family Medicine
DX: M81.0 Age-related osteoporosis without current pathological fracture (principal); Z78.0 Asymptomatic menopausal state; E07.9 Disorder of thyroid, unspecified; Z82.62 Family history of osteoporosis
CPT/HCPCS: 77080

== ENCOUNTER → 2020-10-28 12:08 | Outpatient (CLI) | payer MEDICARE, OTHER, SELFPAY ==
[2019-09-02 21:56] VITALS: BMI 23.7
--- NOTE | 2020-10-28 12:11 | DI.US.S_ITS ---
PROCEDURE: US PERIPH VENOUS LOW EXTREM RT INDICATIONS: RIGHT UPPER THIGH LUMP TECHNIQUE: Real-time imaging, as well as color and pulse Doppler interrogation, were performed of the lower extremity deep veins from the inguinal ligament to the popliteal fossa. COMPARISON: None. FINDINGS: The common femoral, femoral and popliteal veins are normally compressible, and free of intraluminal thrombus. Color and pulse Doppler demonstrate normal phasic intraluminal flow. There is normal augmentation response to distal compression maneuver. At the area of the thigh lump, there is a prominent (and patent) greater saphenous vein. IMPRESSION: Negative for deep venous thrombosis. Prominent patent greater saphenous vein seen at the site of the thigh lump. Dictated by: Gino Pollock M.D. on 10/28/2020 at 11:48 Approved by: Gino Pollock M.D. on 10/28/2020 at 11:49
== END ==
PROVIDERS: PCP Family Medicine; Referring Provider Nurse Practitioner Family; Visit Provider Nurse Practitioner Family
DX: I87.9 Disorder of vein, unspecified (principal); R19.09 Other intra-abdominal and pelvic swelling, mass and lump
CPT/HCPCS: 93971

== ENCOUNTER → 2020-11-04 12:12 | Outpatient (CLI) | payer MEDICARE, OTHER, SELFPAY ==
[2019-09-02 21:56] VITALS: BMI 23.7
== END ==
PROVIDERS: PCP Family Medicine; Referring Provider Nurse Practitioner Family; Visit Provider Nurse Practitioner Family
DX: Z53.8 Procedure and treatment not carried out for other reasons (principal)

== ENCOUNTER → 2021-05-19 08:05 | Outpatient (CLI) | payer MEDICARE, OTHER, SELFPAY ==
[2019-09-02 21:56] VITALS: BMI 23.7
[2021-05-19 08:49] LABS: Add Manual Diff / Slide Review NO; Basophils Absolute Auto 0 /uL (0-100); Basophils Percent Auto 0.8 % (0-2); Eosinophils Absolute Auto 200 /uL (0-450); Eosinophils Percent Auto 3.3 % (2-4); Hematocrit 40.9 % (36-46); Hemoglobin 13.8 g/dL (12.0-16.0); Lymphocytes Absolute Auto 2100 /uL (1100-4500); Lymphocytes Percent Auto 40.8 % (25-40); Mean Corpuscular HGB Conc 33.8 % (30-36); Mean Corpuscular Hemoglobin 29.1 PG (26-34); Monocytes Absolute Auto 300 /uL (0-900); Monocytes Percent Auto 6.5 % (3-14); Neutrophils Absolute Auto 2500 /uL (1500-7000); Neutrophils Percent Auto 48.6 % (50-75); Platelet Count 240 X10^3/uL (150-400); Red Blood Cell Count 4.75 X10^6/uL (4.0-5.2); Red Cell Distribution Width 13.2 % (11.6-14.8); White Blood Cell Count 5.1 X10^3/uL (4.5-11.0)
[2021-05-19 09:01] LABS: Alanine Aminotransferase 14 IU/L (<35); Albumin 4.2 g/dL (3.5-5.0); Albumin Globulin Ratio 1.9 (1.0-2.8); Alkaline Phosphatase 73 U/L (38-126); Aspartate Aminotransferase 20 IU/L (14-36); BUN Creatinine Ratio 29.5 (6-22); Bilirubin Total 0.8 mg/dL (0.2-1.3); Blood Urea Nitrogen 18 mg/dL (7-17); Calcium 9.1 mg/dL (8.4-10.2); Carbon Dioxide 27 mmol/L (22-32); Chloride 104 mmol/L (98-107); Cholesterol 236 mg/dL (140-199); Estimated Glomerular Filt Rate > 60.0 mL/min (>60); Globulin 2.2 g/dL (1.7-4.1); Glucose 89 mg/dL (80-110); HDL Cholesterol 62 mg/dL (40-60); HEMOLYSIS < 15 (0-50); LDL Cholesterol Calculated 141 mg/dL (<100); Potassium 4.4 mmol/L (3.4-5.1); Sodium 139 mmol/L (137-145); Total Protein 6.4 g/dL (6.3-8.2); Triglycerides 167 mg/dL (35-150)
[2021-05-19 09:14] LABS: Free T3, Triiodothyronine Free 4.42 pg/mL (2.77-5.27); Free T4, Direct Thyroxine 1.86 ng/dL (0.78-2.19)
[2021-05-19 09:15] LABS: Vitamin D 25 Hydroxy (D3) 42.6 ng/mL (30.0-100.0)
[2021-05-19 09:28] LABS: Thyroid Stimulating Hormone 0.761 uIU/mL (0.47-4.68)
== END ==
PROVIDERS: PCP Family Medicine; Referring Provider Family Medicine; Visit Provider Family Medicine
DX: E03.9 Hypothyroidism, unspecified (principal); E55.9 Vitamin D deficiency, unspecified; Z13.220 Encounter for screening for lipoid disorders
CPT/HCPCS: 36415; 80053; 80061; 82306; 84439; 84443; 84481; 85025

== ENCOUNTER 2022-03-22 13:45 | Emergency (ER) | payer MEDICARE, OTHER, SELFPAY ==
[2019-09-02 21:56] VITALS: BMI 23.7
[2022-03-22] VITALS (8 sets, daily range): BP systolic 112–142; BP diastolic 68–78; PULSE 70–86; RESP 14–24; TEMP 37.4; O2SAT 97–100; BMI 22.9
--- NOTE | 2022-03-22 13:54 | DI.RAD.S_ITS ---
PROCEDURE: XR CHEST 1V INDICATIONS: chest pain TECHNIQUE: One view of the chest was acquired. COMPARISON: None. FINDINGS: Surgical changes and devices: None. Lungs and pleura: Lungs are clear. No pleural effusions or pneumothorax. Mediastinum: Mediastinal contours appear normal. Heart size is normal. Bones and chest wall: No suspicious bony lesions. Overlying soft tissues appear unremarkable. IMPRESSION: No acute cardiopulmonary abnormality. Dictated by: Randy Tatum M.D. on 03/22/2022 at 15:11 Approved by: Randy Tatum M.D. on 03/22/2022 at 15:12
[2022-03-22 14:14] LABS: Add Manual Diff / Slide Review NO; Basophils Absolute Auto 100 /uL (0-100); Basophils Percent Auto 0.8 % (0-2); Eosinophils Absolute Auto 500 /uL (0-450); Eosinophils Percent Auto 5.8 % (2-4); Hemoglobin 12.9 g/dL (12.0-16.0); Lymphocytes Absolute Auto 2200 /uL (1100-4500); Lymphocytes Percent Auto 25.4 % (25-40); Mean Corpuscular HGB Conc 33.8 % (30-36); Mean Corpuscular Hemoglobin 29.2 PG (26-34); Mean Corpuscular Volume 86.2 fL (80-100); Monocytes Absolute Auto 600 /uL (0-900); Monocytes Percent Auto 6.4 % (3-14); Neutrophils Absolute Auto 5400 /uL (1500-7000); Neutrophils Percent Auto 61.6 % (50-75); Platelet Count 222 X10^3/uL (150-400); Red Blood Cell Count 4.41 X10^6/uL (4.0-5.2); Red Cell Distribution Width 13.3 % (11.6-14.8); White Blood Cell Count 8.8 X10^3/uL (4.5-11.0)
[2022-03-22 14:22] LABS: INR 1.1 (0.9-1.3); Prothrombin Time 12.8 SECONDS (10.1-12.7)
[2022-03-22 14:25] LABS: PTT Partial Thromboplastin Tim 34 SECONDS (26-36)
[2022-03-22 14:37] LABS: Alanine Aminotransferase 14 IU/L (<35); Albumin 3.9 g/dL (3.5-5.0); Albumin Globulin Ratio 1.3 (1.0-2.8); Alkaline Phosphatase 85 U/L (38-126); Aspartate Aminotransferase 21 IU/L (14-36); BUN Creatinine Ratio 23.9 (6-22); Bilirubin Total 0.9 mg/dL (0.2-1.3); Blood Urea Nitrogen 16 mg/dL (7-17); Calcium 8.9 mg/dL (8.4-10.2); Carbon Dioxide 27 mmol/L (22-32); Chloride 104 mmol/L (98-107); Creatine Kinase 36 U/L (30-135); Estimated Glomerular Filt Rate > 60 mL/min (>60); Globulin 2.9 g/dL (1.7-4.1); Glucose 122 mg/dL (80-110); HEMOLYSIS < 15 (0-50); Lipase 72 U/L (23-300); Magnesium 2.1 mg/dL (1.6-2.3); Potassium 3.9 mmol/L (3.4-5.1); Sodium 138 mmol/L (137-145); Total Protein 6.8 g/dL (6.3-8.2)
[2022-03-22 14:48] LABS: Troponin I < 0.012 ng/mL (0.01-0.034)
--- NOTE | 2022-03-22 15:22 | ED_ITS ---
HPI - Chest Pain General Chief Complaint: Chest Pain Stated Complaint: Chest pain/Pt states pain in heart Time Seen by Provider: 03/22/22 15:22 Source: patient Mode of arrival: Ambulatory Limitations: no limitations History of Present Illness HPI narrative: Patient is a 66-year-old female history of hypothyroid, recent DVT but not currently on anticoagulation presenting today with shortness of breath and left-sided chest pain and upper quadrant pain. She says this started yesterday. She says hurts to breathe she feels a little short of breath with exertion. Pain does not really go away it is not radiating. It is very constant. She does not feel right. Denies fever or chills. No nausea or vomiting. She had some sort of DVT in her right saphenous vein. She was put on Eliquis for about 10 days real ultrasounded, in told she could stop. Related Data Home Medications Medication Instructions Recorded Confirmed cholecalciferol (vitamin D3) 50 2,000 unit PO DAILY 09/02/19 06/06/21 mcg (2,000 unit) capsule (Vitamin D3) Previous Rx's Medication Instructions Recorded levothyroxine 100 mcg tablet 100 mcg PO DAILY #90 tabs 06/06/21 ESTRIOL 0.125% VAGINAL CREAM CREAM See Rx Instructions .Route 12/05/21 .COMPLEX #30 grams apixaban 5 mg (74 tabs) tablets in See Rx Instructions PO .COMPLEX 03/22/22 a dose pack (Eliquis DVT-PE Treat #74 ea 30D Start) hydrocodone 5 mg-acetaminophen 325 1 tab PO Q6H PRN pain #15 tabs 03/22/22 mg tablet Allergies Allergy/AdvReac Type Severity Reaction Status Date / Time Sulfa (Sulfonamide Allergy Verified 03/22/22 13:49 Antibiotics) Review of Systems Review of Systems Narrative: GENERAL: Denies chills, fatigue, malaise, fever, sweats, travel HEENT: Denies sinus pain, ear pain, sore throat, difficulty swallowing, neck pain RESPIRATORY: See HPI CARDIOVASCULAR: Denies chest pain, palpitations, orthopnea, edema GASTROINTESTINAL: Denies nausea, vomiting, abdominal pain, diarrhea, constipation, melena. : Denies dysuria, frequency, incontinence, hematuria, urinary retention, flank pain. MUSCULOSKELETAL: Denies weakness, joint pain, or bony pain SKIN: No rash, no erythema, no pruritus NEUROLOGIC: Denies weakness, dizziness, headache, numbness, change in speech, confusion PSYCHIATRIC: No concerning psychosocial issues. 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 Vitamin D deficiency Surgical History Anesthesia History of appendectomy (~09/02/19) Internal hemorrhoid (~2001) Status post wisdom tooth extraction Family History Mother Parkinsons disease Father Parkinsons disease Stroke History of heart disease Hyperlipidemia Hypertension Brother Hypertension Hyperlipidemia Sister Hypertension Prediabetes Grandfather Cancer Grandmother History of heart disease Hyperlipidemia Hypertension Grandfather Flu Social History household members: significant other and family Smoking Status: Never smoker alcohol intake: current Smoking Status: Never smoker alcohol intake frequency: holidays/special occasions only Substance Use Type: does not use Exam Initial Vital Signs Initial Vital Signs: Vital Signs Temperature 99.3 F 03/22/22 13:48 Pulse Rate 86 03/22/22 13:48 Respiratory Rate 14 03/22/22 13:48 Blood Pressure 112/74 03/22/22 13:48 Pulse Oximetry 98 03/22/22 13:48 Oxygen Delivery Method 03/22/22 13:48 GENERAL: Alert 66-year-old female clutching left-sided chest appears uncomfortable HEENT: Head atraumatic,EOMI, pupils reactive, face symmetric, moist mucous membranes CARDIOVASCULAR: Regular rate and rhythm without murmurs, rubs or gallops. RESPIRATORY: Breath sounds equal bilaterally, no wheezes rales or rhonchi. ABDOMEN: Soft, nontender. Normoactive bowel sounds all 4 quadrants. No guarding or rebound. No splenomegaly fell EXTREMITIES: Normal range of motion, no clubbing or edema. Neurovascularly intact NEUROLOGICAL: Alert and oriented x4.Normal gait and speech. SKIN: Warm, dry, no laceration, no petechiae, no rashes or lesions. Course Orders Ordered: ED Orders 03/22/22 13:54 XR chest 1V Stat EKG-12 Lead Stat 03/22/22 14:00 Complete Blood Count AUTO DIFF Stat Comprehensive Metabolic Panel Stat Lipase Stat Magnesium Stat Partial Thromboplastin Time Stat Prothrombin Time INR Stat Troponin & CK Cardiac Panel Stat 03/22/22 15:30 CT angio chest PE protocol Stat Discontinued Medications Apixaban (Apixaban 5 Mg Tablet) 10 mg PO NOW ONE Stop: 03/22/22 17:19 Last Admin: 03/22/22 17:32 Dose: 10 mg Documented By: EILEEN Morphine Sulfate (Morphine 4 Mg/Ml Inj) 4 mg IV NOW ONE Stop: 03/22/22 15:38 Last Admin: 03/22/22 15:54 Dose: Not Given Documented By: EILEEN Ondansetron HCl (Ondansetron 4 Mg/2 Ml Inj) 4 mg IV NOW ONE Stop: 03/22/22 15:38 Last Admin: 03/22/22 15:54 Dose: Not Given Documented By: EILEEN Vital Signs Vital signs: Vital Signs - 8 hr 03/22/22 13:48 03/22/22 15:13 03/22/22 15:15 Temperature 99.3 F Pulse Rate 86 71 71 Respiratory Rate 14 14 Blood Pressure 112/74 Pulse Oximetry 98 97 97 Oxygen Delivery Method Room Air 03/22/22 15:15 03/22/22 15:30 03/22/22 15:30 Temperature Pulse Rate 71 Respiratory Rate 24 Blood Pressure 142/76 H 138/78 Pulse Oximetry 99 Oxygen Delivery Method 03/22/22 15:46 03/22/22 15:46 03/22/22 16:00 Temperature Pulse Rate 71 Respiratory Rate 24 Blood Pressure 127/73 126/72 Pulse Oximetry 97 Oxygen Delivery Method 03/22/22 16:00 03/22/22 16:30 03/22/22 16:30 Temperature Pulse Rate 70 70 Respiratory Rate 21 18 Blood Pressure 114/68 Pulse Oximetry 100 100 Oxygen Delivery Method 03/22/22 17:00 03/22/22 17:00 Temperature Pulse Rate 75 Respiratory Rate 18 Blood Pressure 116/75 Pulse Oximetry 98 Oxygen Delivery Method Room Air MDM - Chest Pain Lab Data Result diagrams: 03/22/22 14:00 03/22/22 14:00 Labs: Lab Results 03/22/22 03/22/22 03/22/22 Range/Units 14:00 14:00 14:00 WBC 8.8 (4.5-11.0) X10^3/uL RBC 4.41 (4.0-5.2) X10^6/uL Hgb 12.9 (12.0-16.0) g/dL Hct 38.0 (36-46) % MCV 86.2 (80-100) fL MCH 29.2 (26-34) PG MCHC 33.8 (30-36) % RDW 13.3 (11.6-14.8) % Plt Count 222 (150-400) X10^3/uL Neut % (Auto) 61.6 (50-75) % Lymph % (Auto) 25.4 (25-40) % Frederick % (Auto) 6.4 (3-14) % Eos % (Auto) 5.8 H (2-4) % Baso % (Auto) 0.8 (0-2) % Neut # (Auto) 5400 (6209-5642) /uL Lymph # (Auto) 2200 (3926-6193) /uL Frederick # (Auto) 600 (0-900) /uL Eos # (Auto) 500 H (0-450) /uL Baso # (Auto) 100 (0-100) /uL PT 12.8 H (10.1-12.7) SECONDS INR 1.1 (0.9-1.3) APTT 34 (26-36) SECONDS Sodium 138 (137-145) mmol/L Potassium 3.9 (3.4-5.1) mmol/L Chloride 104 (98-107) mmol/L Carbon Dioxide 27 (22-32) mmol/L BUN 16 (7-17) mg/dL Creatinine 0.67 (0.52-1.04) mg/dL Estimated GFR > 60 (>60) mL/min BUN/Creatinine Ratio 23.9 H (6-22) Glucose 122 H (80-110) mg/dL Calcium 8.9 (8.4-10.2) mg/dL Magnesium 2.1 (1.6-2.3) mg/dL Total Bilirubin 0.9 (0.2-1.3) mg/dL AST 21 (14-36) IU/L ALT 14 (<35) IU/L Alkaline Phosphatase 85 (38-126) U/L Total Creatine Kinase 36 (30-135) U/L CK-MB (CK-2) TNP CK-MB (CK-2) Rel Index TNP Troponin I < 0.012 (0.01-0.034) ng/mL Total Protein 6.8 (6.3-8.2) g/dL Albumin 3.9 (3.5-5.0) g/dL Globulin 2.9 (1.7-4.1) g/dL Albumin/Globulin Ratio 1.3 (1.0-2.8) Lipase 72 (23-300) U/L Imaging Data Chest x-ray: Radiologist's Impression: Signed Patient: Lauren Moise MR#: [id number] : 1955 Acct:[id number] Age/Sex: 66 / F Date of Service: 03/22/22 Loc: ED Accession Number: [id number] ?? Procedure: XR chest 1V Ordering Provider: Emilie Waterman D.O. PROCEDURE:? XR CHEST 1V ? INDICATIONS:? chest pain ? TECHNIQUE:? One view of the chest was acquired.? ? COMPARISON:? None. ? FINDINGS:? ? Surgical changes and devices:? None.? ? Lungs and pleura:? Lungs are clear.? No pleural effusions or pneumothorax.? ? Mediastinum:? Mediastinal contours appear normal.? Heart size is normal.? ? Bones and chest wall:? No suspicious bony lesions.? Overlying soft tissues appear unremarkable.? ? IMPRESSION:? No acute cardiopulmonary abnormality. ? ? ? Dictated by: Randy Tatum M.D. on 03/22/2022 at 15:11 ? ? Approved by: Randy Tatum M.D. on 03/22/2022 at 15:12 ? CT scan - chest: Radiologist's Impression: Lauren delgado MR#: [id number] : 1955 Acct:[id number] Age/Sex: 66 / F Date of Service: 03/22/22 Loc: ED Accession Number: [id number] ?? Procedure: CT angio chest PE protocol Ordering Provider: Emilie Waterman D.O. PROCEDURE:? CT ANGIO CHEST PE PROTOCOL ? INDICATIONS:? recent dvt sob with LUQ pain ? TECHNIQUE:? After the administration of intravenous contrast, 2 mm thick sections acquired from the pulmonary apices to the posterior costophrenic angles.? 3-dimensional maximum intensity projection (MIP) coronal and sagittal reformats were then acquired through the thorax.? For radiation dose reduction, the following was used:? automated exposure control, adjustment of mA and/or kV according to patient size.? ? COMPARISON:? [facility], CT, CT ABDOMEN PELVIS W CON, 09/02/2019, 16:21. ? FINDINGS:? Image quality:? Excellent.? ? Pulmonary arteries:? There are fully occlusive filling defects in the several bilateral segmental and subsegmental pulmonary artery branches. ? Lungs and pleura:? Hazy ground-glass airspace opacities in the lower lobes could reflect atelectasis or an infectious process.? These are bordering on consolidative in the basilar lower lobes. ? Mediastinum:? Normal heart size.? No pericardial effusion.? No findings of right heart strain.? No acute finding of the aorta.? Mild bilateral hilar lymphadenopathy. ? Bones and chest wall:? No suspicious bony lesions.? Ribs and thoracic spine appear intact throughout.? No axillary or supraclavicular adenopathy.? ? Abdomen:? Visualized upper abdominal solid organs appear normal in the early ar terial phase of enhancement.? ? IMPRESSION:? ? Several bilateral segmental and subsegmental pulmonary artery emboli. ? No findings of right heart strain. ? Bilateral lower lobe hazy ground-glass airspace and near consolidative opacity, favored to represent atelectasis although infection would appear similar.? ? Findings discussed with Dr. Emilie Waterman. ? Dictated by: Jaime Coyne M.D. on 03/22/2022 at 15:52 ? ? ECG Data Interpretation: Normal sinus rhythm rate 89 [place] interval 132 QRS 68 QTC [address] changes-- no priors MDM Narrative Medical decision making narrative: Patient recently had a DVT. She says she had a repeat ultrasound which no longer showed a DVT so she was stopped her Eliquis. However today having increasing left-sided chest pain some shortness of breath currently not hypoxic however CT does confirm bilateral multiple pulmonary embolisms. At this time there is no right heart strain no central pulmonary embolism. At this time can be discharged home on Eliquis. She actually has some Eliquis left. She is g iven her 1st dose here in the ED. Discharge Plan Departure Patient Disposition: Home Clinical Impression: Pulmonary embolism Instructions: DI for Pulmonary Embolism Activity Restrictions/Additional Instructions: *You have been diagnosed with bilateral pulmonary embolism *What to do: At this time he will need to take Eliquis for at least 3 months. Please follow-up closely with your PCP. Please avoid high-risk activities such as ladders. Avoid hitting her head if you should accidentally hit her head please come to the emergency department for evaluation. *Continue to take medications as directed--> SENT TO [facility] Eliquis 10 mg twice a day for 7 days then 5 mg twice a day [place] 1 tablet every 6 hours if needed for pain *Follow up with your primary care provider in 2-3 days or call [phone] *Return to ER if you should have fall, bleeding, increased pain, shortness of breath or any new, worsening or concerning symptoms CONTROLLED SUBSTANCE DISCHARGE (Narcotoic/benzodiazepine/Flexeril/Phenergan) 1. You have been prescribed narcotic medications, it does have ac etaminophen/Tylenol/paracetamol in it, DO NOT TAKE MORE THAN 4,00mg in 24 hours of Tylenol. TRAMADOL DOES NOT CONTAIN TYLENOL 2. Please understand that we cannot provide further refills of narcotics, benzodiazepines or controlled substances through the ED and her pain management will need to be through your provider. 3. While on these medications you cannot drive or operate heavy machinery. 4. You cannot sign legal documents or perform any duties such as this. 5. As long as you're taking opiate pain medications he should also be taking a stool softener such as Colace, Dulcolax, MiraLAX or prune juice, to help avoid constipation. Prescriptions: New Eliquis DVT-PE Treat 30D Start 5 mg (74 tabs) tablets,dose pack See Rx Instructions .ROUTE .COMPLEX Qty: 74 0RF Rx Instructions: orally per package directions hydrocodone-acetaminophen 5-325 mg tablet 1 tab PO Q6H PRN (Reason: pain) Qty: 15 0RF No Action ESTRIOL 0.125% VAGINAL CREAM CREAM See Rx Instructions .ROUTE .COMPLEX Qty: 30 12RF Dose Instruction: Apply 1 gram vaginally every 3 days at bedtime . Rx Instructions: Apply 1 gram vaginally every 3 days at bedtime . levothyroxine 100 mcg tablet 100 mcg PO DAILY Qty: 90 3RF cholecalciferol (vitamin D3) [Vitamin D3] 50 mcg (2,000 unit) Capsule 2,000 unit PO DAILY Referrals: Suman Birch DO [Primary Care Provider] - Visit Report Forms: Patient Portal/API
--- NOTE | 2022-03-22 15:30 | DI.CT.S_ITS ---
PROCEDURE: CT ANGIO CHEST PE PROTOCOL INDICATIONS: recent dvt sob with LUQ pain TECHNIQUE: After the administration of intravenous contrast, 2 mm thick sections acquired from the pulmonary apices to the posterior costophrenic angles. 3-dimensional maximum intensity projection (MIP) coronal and sagittal reformats were then acquired through the thorax. For radiation dose reduction, the following was used: automated exposure control, adjustment of mA and/or kV according to patient size. COMPARISON: [facility], CT, CT ABDOMEN PELVIS W CON, 09/02/2019, 16:21. FINDINGS: Image quality: Excellent. Pulmonary arteries: There are fully occlusive filling defects in the several bilateral segmental and subsegmental pulmonary artery branches. Lungs and pleura: Hazy ground-glass airspace opacities in the lower lobes could reflect atelectasis or an infectious process. These are bordering on consolidative in the basilar lower lobes. Mediastinum: Normal heart size. No pericardial effusion. No findings of right heart strain. No acute finding of the aorta. Mild bilateral hilar lymphadenopathy. Bones and chest wall: No suspicious bony lesions. Ribs and thoracic spine appear intact throughout. No axillary or supraclavicular adenopathy. Abdomen: Visualized upper abdominal solid organs appear normal in the early arterial phase of enhancement. IMPRESSION: Several bilateral segmental and subsegmental pulmonary artery emboli. No findings of right heart strain. Bilateral lower lobe hazy ground-glass airspace and near consolidative opacity, favored to represent atelectasis although infection would appear similar. Findings discussed with Dr. Emilie Waterman. Dictated by: Jaime Coyne M.D. on 03/22/2022 at 15:52 Approved by: Jaime Coyne M.D. on 03/22/2022 at 15:57
[2022-03-22] MEDS: APIXABAN 5 MG TABLET 10 MG PO (17:32)
== END 2022-03-22 17:51 | disposition home or self-care (01) ==
PROVIDERS: Emergency Provider Emergency Medicine; PCP Family Medicine
DX: I26.99 Other pulmonary embolism without acute cor pulmonale (principal); R07.9 Chest pain, unspecified; R06.02 Shortness of breath; Z79.01 Long term (current) use of anticoagulants
CPT/HCPCS: 36415; 71045; 71275; 80053; 82550; 83690; 83735; 84484; 85025; 85610; 85730; 93005; 99284; Q9967

== ENCOUNTER → 2022-08-03 07:46 | Outpatient (CLI) | payer MEDICARE, OTHER, SELFPAY ==
[2019-09-02 21:56] VITALS: BMI 23.7
[2022-08-03 08:56] LABS: Alanine Aminotransferase 16 IU/L (<35); Albumin 3.8 g/dL (3.5-5.0); Albumin Globulin Ratio 1.6 (1.0-2.8); Alkaline Phosphatase 81 U/L (38-126); Aspartate Aminotransferase 19 IU/L (14-36); BUN Creatinine Ratio 21.3 (6-22); Bilirubin Total 0.6 mg/dL (0.2-1.3); Blood Urea Nitrogen 13 mg/dL (7-17); Calcium 8.6 mg/dL (8.4-10.2); Carbon Dioxide 26 mmol/L (22-32); Chloride 105 mmol/L (98-107); Cholesterol 208 mg/dL (140-199); Estimated Glomerular Filt Rate > 60 mL/min (>60); Globulin 2.4 g/dL (1.7-4.1); Glucose 79 mg/dL (80-110); HDL Cholesterol 64 mg/dL (40-60); HEMOLYSIS < 15 (0-50); LDL Cholesterol Calculated 126 mg/dL (<100); Potassium 4.4 mmol/L (3.4-5.1); Sodium 138 mmol/L (137-145); Total Protein 6.2 g/dL (6.3-8.2); Triglycerides 90 mg/dL (35-150)
[2022-08-03 09:11] LABS: Vitamin D 25 Hydroxy (D3) 44.5 ng/mL (30.0-100.0)
[2022-08-03 09:35] LABS: TSH w/ Reflex to FT4 1.52 uIU/mL (0.47-4.68)
== END ==
PROVIDERS: PCP Family Medicine; Referring Provider Family Medicine; Visit Provider Family Medicine
DX: E03.9 Hypothyroidism, unspecified (principal); E55.9 Vitamin D deficiency, unspecified; I26.99 Other pulmonary embolism without acute cor pulmonale; I73.9 Peripheral vascular disease, unspecified
CPT/HCPCS: 36415; 80053; 80061; 82306; 84439; 84443; 84481

== ENCOUNTER → 2022-11-01 15:18 | Outpatient (CLI) | payer MEDICARE, OTHER, SELFPAY ==
[2019-09-02 21:56] VITALS: BMI 23.7
--- NOTE | 2022-11-01 15:19 | DI.MG.S_ITS ---
BILATERAL DIGITAL SCREENING MAMMOGRAM 3D/2D WITH CAD: 11/01/2022 CLINICAL: Routine screening. Family history of breast cancer. Comparison is made to exams dated: 12/07/2020 mammogram - [facility], 12/11/2017 mammogram, and 11/01/2015 mammogram - [facility]. Both breasts are extremely dense, which lowers the sensitivity of mammography (category d />75% glandular tissue). Current study was also evaluated with a Computer Aided Detection (CAD) system. There are benign calcifications in both breasts. No significant masses, calcifications, or other findings are seen in either breast. There has been no significant interval change. IMPRESSION: BENIGN There is no mammographic evidence of malignancy. A 1 year screening mammogram is recommended. Based on the Tyrer Cuzick model (a risk assessment model) the patient's lifetime risk is 13.4% and her 10 year risk is 8.0%. According to the ACR, ACS, and NCCN guidelines, an annual breast MRI exam along with mammogram is recommended if the patient's lifetime risk is 20% or greater. This exam was interpreted at Station ID: [id number]. NOTE: For mammograms, a report in lay terms will be sent to the patient. Approximately 15% of breast malignancies will not be visualized mammographically. In the management of a palpable breast mass, a negative mammogram must not discourage biopsy of a clinically suspicious lesion. Electronically Signed By: Jacob james/rosalia:11/02/2022 07:14:27 letter sent: Normal Exam ACR BI-RADS Category 2: Benign Finding(s) 3342F
--- NOTE | 2022-11-01 15:31 | DI.DEXA.S_ITS ---
Bone Density Report Name: AMBER OH Age: 67 Sex: Female Ethnicity: White Date of : 1955 Indication: osteopenia; Referring Provider: FERNANDO MUÑOZ Study: Bone densitometry was performed. Exam Date: November 01, 2022 Accession number: [id number] Bone Density: Region BMD T-score Z-score Classification AP Spine(L1-L4) 0.819 -2.1 0.0 Osteopenia Femoral Neck (Left) 0.783 -0.6 1.2 Normal Total Hip (Left) 0.759 -1.5 0.0 Osteopenia Femoral Neck (Right) 0.659 -1.7 0.0 Osteopenia Total Hip (Right) 0.724 -1.8 -0.3 Osteopenia Total Hip Mean 0.741 -1.7 -0.2 Osteopenia World Health Organization criteria for BMD impression classify patients as: Normal (T-score at or above -1.0), Osteopenia (T-score between -1.0 and -2.5), or Osteoporosis (T-score at or below -2.5). 10-year Fracture Risk(1): Major Osteoporotic Fracture 10% Hip Fracture 1.7% Reported Risk Factors: [place] (), Neck BMD=0.659, BMI=24.6 (1) FRAX(R) Version 3.08. Fracture probability calculated for an untreated patient. Fracture probability may be lower if the patient has received treatment. Previous Exams: -- Region Exam Age BMD T-score BMD Change BMD Change Date g/cm2 vs Baseline vs Previous -- AP Spine (L1-L4) 11/01/2022 67 0.819 -2.1 -0.031 (-3.7%)# -0.031 (-3.7%)# 05/19/2020 64 0.850 -1.8 Total Hip(Left) 11/01/2022 67 0.759 -1.5 -0.032 (-4.0%)# -0.032 (-4.0%)# 05/19/2020 64 0.791 -1.2 Total Hip(Right) 11/01/2022 67 0.724 -1.8 -0.024 (-3.2%)# -0.024 (-3.2%)# 05/19/2020 64 0.747 -1.6 -- *Denotes significance at 95% confidence level, LSC for AP Spine = 0.022 g/cm2, LSC for Total Hip = 0.027 g/cm2 # Denotes dissimilar scan types or analysis methods Impression: The patient has low bone mass, based on the Total Spine T-score. The patient has an estimated ten-year risk of hip fracture of 1.7% and an estimated ten-year risk of major fracture of 10%, based on the WHO FRAX algorithm. No significant bone loss was observed. Discussion: BONE DENSITY IS LOW AT ONE OR MORE SKELETAL SITES. This patient's lowest T-score is low at one or more skeletal sites. It meets the World Health Organization's (WHO) criteria for ?low bone mass? (T-score between -1.0 and -2.5). The patient's 10-year risk of fracture as calculated by FRAX is less than the threshold where pharmacological therapy is recommended by the National Osteoporosis Foundation (NOF). However, all treatment decisions require clinical judgment and consideration of individual patient factors, including patient preferences, comorbidities, previous drug use, risk factors not captured in the FRAX model (e.g., frailty, falls, vitamin D deficiency, increased bone turnover, interval significant decline in bone density) and possible under or overestimation of fracture risk by FRAX. The patient should follow a healthful lifestyle (good nutrition with adequate calcium and vitamin D, and appropriate weight-bearing exercise). Follow-Up: Consider repeating this study in 2 to 3 years to reassess this patient's status, or sooner if there is some new clinical indication. Reported by: MEL HYATT M.D. on 11/01/2022 3:42:00 PM.
== END ==
PROVIDERS: PCP Family Medicine; Referring Provider Family Medicine; Visit Provider Family Medicine
DX: Z78.0 Asymptomatic menopausal state (principal); Z12.31 Encounter for screening mammogram for malignant neoplasm of breast; M85.88 Other specified disorders of bone density and structure, other site; Z80.3 Family history of malignant neoplasm of breast
CPT/HCPCS: 77063; 77067; 77080

== ENCOUNTER → 2023-10-08 08:31 | Outpatient (CLI) | payer MEDICARE, OTHER, SELFPAY ==
[2019-09-02 21:56] VITALS: BMI 23.7
[2023-10-08 09:22] LABS: Add Manual Diff / Slide Review NO; Basophils Absolute Auto 0 /uL (0-100); Basophils Percent Auto 0.6 % (0-2); Eosinophils Absolute Auto 200 /uL (0-450); Eosinophils Percent Auto 2.7 % (2-4); Hematocrit 40.5 % (36-46); Hemoglobin 13.7 g/dL (12.0-16.0); Lymphocytes Absolute Auto 2400 /uL (1100-4500); Lymphocytes Percent Auto 40.9 % (25-40); Mean Corpuscular HGB Conc 33.7 % (30-36); Mean Corpuscular Hemoglobin 29.2 PG (26-34); Mean Corpuscular Volume 86.5 fL (80-100); Monocytes Absolute Auto 400 /uL (0-900); Monocytes Percent Auto 6.2 % (3-14); Neutrophils Absolute Auto 2900 /uL (1500-7000); Neutrophils Percent Auto 49.6 % (50-75); Platelet Count 235 X10^3/uL (150-400); Red Blood Cell Count 4.68 X10^6/uL (4.0-5.2); Red Cell Distribution Width 13.8 % (11.6-14.8); White Blood Cell Count 5.8 X10^3/uL (4.5-11.0)
[2023-10-08 09:41] LABS: Alanine Aminotransferase 19 IU/L (<35); Albumin 3.9 g/dL (3.5-5.0); Albumin Globulin Ratio 1.6 (1.0-2.8); Alkaline Phosphatase 71 U/L (38-126); Aspartate Aminotransferase 23 IU/L (14-36); BUN Creatinine Ratio 32.8 (6-22); Blood Urea Nitrogen 19 mg/dL (7-17); Calcium 8.8 mg/dL (8.4-10.2); Carbon Dioxide 27 mmol/L (22-32); Cholesterol 237 mg/dL (140-199); Estimated Glomerular Filt Rate > 60 mL/min (>60); Globulin 2.5 g/dL (1.7-4.1); Glucose 85 mg/dL (80-110); HDL Cholesterol 71 mg/dL (40-60); HEMOLYSIS < 15 (0-50); LDL Cholesterol Calculated 144 mg/dL (<100); Total Protein 6.4 g/dL (6.3-8.2); Triglycerides 109 mg/dL (35-150)
[2023-10-08 10:00] LABS: Chloride 107 mmol/L (98-107); Potassium 4.1 mmol/L (3.4-5.1); Sodium 136 mmol/L (137-145)
[2023-10-08 10:08] LABS: TSH w/ Reflex to FT4 1.07 uIU/mL (0.47-4.68)
[2023-10-08 21:36] LABS: Hep C Virus Ab w/Reflex Quant NEGATIVE s/c (NEGATIVE)
[2023-10-10 08:08] LABS: Apolipoprotein B 115 mg/dL (<90); HSV 2 IGG AB < 0.91 index (0.00-0.90)
[2023-10-12 04:11] LABS: Lipoprotein (a) 105.2 nmol/L (<75.0)
== END ==
PROVIDERS: PCP Family Medicine; Referring Provider Family Medicine; Visit Provider Family Medicine
DX: L08.9 Local infection of the skin and subcutaneous tissue, unspecified (principal); E78.5 Hyperlipidemia, unspecified; B97.89 Other viral agents as the cause of diseases classified elsewhere; E03.9 Hypothyroidism, unspecified; Z11.59 Encounter for screening for other viral diseases
CPT/HCPCS: 36415; 80053; 80061; 82172; 83695; 84443; 85025; 86695; 86696; 86803

== ENCOUNTER → 2024-03-16 08:58 | Outpatient (CLI) | payer MEDICARE, OTHER, SELFPAY ==
[2019-09-02 21:56] VITALS: BMI 23.7
[2024-03-16 10:20] LABS: Alanine Aminotransferase 25 IU/L (<35); Albumin 4.3 g/dL (3.5-5.0); Alkaline Phosphatase 93 U/L (38-126); Aspartate Aminotransferase 26 IU/L (14-36); BUN Creatinine Ratio 21.6 (6-22); Bilirubin Total 0.9 mg/dL (0.2-1.3); Blood Urea Nitrogen 16 mg/dL (7-17); Calcium 9.5 mg/dL (8.4-10.2); Carbon Dioxide 27 mmol/L (22-32); Chloride 104 mmol/L (98-107); Cholesterol 217 mg/dL (140-199); Estimated Glomerular Filt Rate > 60 mL/min (>60); Globulin 2.2 g/dL (1.7-4.1); Glucose 91 mg/dL (80-110); HDL Cholesterol 86 mg/dL (40-60); HEMOLYSIS < 15 (0-50); LDL Cholesterol Calculated 111 mg/dL (<100); Potassium 4.4 mmol/L (3.4-5.1); Sodium 138 mmol/L (137-145); Total Protein 6.5 g/dL (6.3-8.2); Triglycerides 98 mg/dL (35-150)
[2024-03-17 05:41] LABS: Apolipoprotein B 98 mg/dL (<90)
== END ==
PROVIDERS: PCP Family Medicine; Referring Provider Family Medicine; Visit Provider Family Medicine
DX: E03.9 Hypothyroidism, unspecified (principal); E78.5 Hyperlipidemia, unspecified
CPT/HCPCS: 36415; 80053; 80061; 82172

== ENCOUNTER 2024-08-12 14:13 | Emergency (ER) | payer MEDICARE, OTHER, SELFPAY ==
[2019-09-02 21:56] VITALS: BMI 23.7
[2024-08-12] VITALS (9 sets, daily range): BP systolic 114–120; BP diastolic 69–75; PULSE 60–67; RESP 16–31; TEMP 36.7; O2SAT 96–99; BMI 23.1
--- NOTE | 2024-08-12 14:26 | DI.US.S_ITS ---
PROCEDURE: US PERIP VENOUS LOW EXTREM RT INDICATIONS: h/o PE, please evaluate for DVT RLE, R medial thigh painful, R knee swelling TECHNIQUE: Real-time imaging, as well as color and pulse Doppler interrogation, were performed of the lower extremity deep veins from the inguinal ligament to the popliteal fossa, with documentation of the visualized calf veins. COMPARISON: [facility], [facility] VENOUS LOW EXTREM RT, 10/28/2020, 12:24. FINDINGS: The common femoral, femoral, popliteal, and the visualized calf veins are normally compressible, and free of intraluminal thrombus. Color and pulse Doppler demonstrate normal phasic intraluminal flow. There is normal augmentation response to distal compression maneuver. Within the greater saphenous vein, there is clot seen within its midportion, greater than 5 cm from the saphenofemoral junction. IMPRESSION: No findings of lower extremity deep venous thrombosis. Superficial venous thrombosis seen within the greater saphenous vein. Dictated by: Gino Pollock M.D. on 08/12/2024 at 14:30 Approved by: Gino Pollock M.D. on 08/12/2024 at 14:31
--- NOTE | 2024-08-12 15:28 | ED_ITS ---
HPI - Extremity Problem General Chief complaint: Extremity Problem,Nontraumatic Stated complaint: poss blood clot on right leg Time Seen by Provider: 08/12/24 14:32 History of Present Illness HPI Narrative: Patient complains of right inner thigh groin redness and discomfort. She thinks this started about 2 days ago. 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 No longer on it. She had varicose vein stripping done at [place] and develop a DVT then a pulmonary embolism. She denies denies any chest pain or shortness of breath at this time. Related Data Home Medications Medication Instructions Recorded Confirmed cholecalciferol (vitamin D3) 50 2,000 unit PO DAILY 09/02/19 08/17/24 mcg (2,000 unit) capsule (Vitamin D3) Previous Rx's Medication Instructions Recorded ESTRIOL 0.125% VAGINAL CREAM See Rx Instructions .Route 01/08/24 .COMPLEX #30 grams levothyroxine 100 mcg tablet 100 mcg PO DAILY #90 tabs 08/17/24 rosuvastatin 5 mg tablet 5 mg PO DAILY #90 tabs 08/17/24 rivaroxaban 10 mg tablet (Xarelto) 10 mg PO DAILY #85 tabs 08/19/24 Allergies Allergy/AdvReac Type Severity Reaction Status Date / Time Sulfa (Sulfonamide Allergy Verified 08/17/24 09:16 Antibiotics) Review of Systems Review of Systems Narrative: GENERAL: Negative chills, fatigue, malaise, fever, sweats. HEENT: Negative sinus pain, ear pain, sore throat RESPIRATORY: Negative dyspnea, cough CARDIOVASCULAR: Negative chest pain, palpitations GASTROINTESTINAL: Negative nausea, vomiting, abdominal pain : Negative dysuria, frequency, hematuria MUSCULOSKELETAL: Positive muscle or bony pain SKIN: Negative rash, skin lesions NEUROLOGIC: Negative weakness, numbness ROS Unobtainable: All systems reviewed & are unremarkable except as noted in HPI and below Patient History Medical History Urge incontinence of urine Eczema (~1958) Osteopenia (~2015) Mumps (~1957) Measles (~1957) Chicken pox (~1957) Hemorrhoid (~1983) Colon polyps (~2010) Thyroid nodule (~1985) Peripheral vascular disease (~2015) Chronic right hip pain Right knee pain 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 Vitamin D deficiency Hypothyroidism (~1985) Surgical History Anesthesia Internal hemorrhoid (~2001) Status post wisdom tooth extraction History of appendectomy (~09/02/19) Family History Mother Parkinsons disease Father Parkinsons disease Stroke History of heart disease Hyperlipidemia Hypertension Brother Hypertension Hyperlipidemia Sister Hypertension Prediabetes Grandfather Cancer Grandmother History of heart disease Hyperlipidemia Hypertension Grandfather Flu Social History household members: significant other and family Smoking Status: Never smoker alcohol intake: current Smoking Status: Never smoker alcohol intake frequency: holidays/special occasions only Exam Narrative Exam Narrative: GENERAL: in no distress, not toxic not dyspneic HEAD: Normocephalic. EYES: Pupils equal round ENT: Mucous membranes moist. NECK: Trachea midline. CARDIOVASCULAR: Regular rate and rhythm RESPIRATORY: Clear to auscultation. Breath sounds equal bilaterally. No wheezes, rales, or rhonchi. EXTREMITIES: No gross deformities. Examination right lower extremity warm soft pink strong pedal pulse brisk cap refills. Negative Homans test negative Saini test. No palpable cords. NEURO: AOx4. SKIN: Warm and dry PSYCH: Not anxious, is cooperative Initial Vital Signs Initial Vital Signs: Vital Signs Temperature 98.0 F 08/12/24 14:19 Pulse Rate 66 08/12/24 14:19 Respiratory Rate 16 08/12/24 14:19 Blood Pressure 114/69 08/12/24 14:19 Pulse Oximetry 99 08/12/24 14:19 Oxygen Delivery Method Room Air 08/12/24 14:19 Course Orders Ordered: Discontinued Medications Apixaban (Apixaban 5 Mg Tablet) 10 mg PO NOW ONE Stop: 08/12/24 15:30 Last Admin: 08/12/24 15:33 Dose: 10 mg Documented By: BENEDICTO Vital Signs Vital signs: Vital Signs - 8 hr 08/12/24 14:19 08/12/24 14:25 08/12/24 14:39 Temperature 98.0 F Pulse Rate 66 67 Pulse Rate [Right Dorsalis Pedis] 66 Respiratory Rate 16 31 H Blood Pressure 114/69 Pulse Oximetry 99 98 Oxygen Delivery Method Room Air 08/12/24 14:40 08/12/24 14:40 08/12/24 15:00 Temperature Pulse Rate 64 Pulse Rate [Right Dorsalis Pedis] Respiratory Rate 29 H Blood Pressure 120/75 117/74 Pulse Oximetry 98 Oxygen Delivery Method 08/12/24 15:00 Temperature Pulse Rate 62 Pulse Rate [Right Dorsalis Pedis] Respiratory Rate 19 Blood Pressure Pulse Oximetry 96 Oxygen Delivery Method MDM - Extremity (Nontraumatic) Lab Data 08/12/24 15:14 08/12/24 15:14 Labs: Lab Results 08/12/24 Range/Units 15:14 WBC 7.5 (4.5-11.0) X10^3/uL RBC 4.75 (4.0-5.2) X10^6/uL Hgb 13.8 (12.0-16.0) g/dL Hct 41.9 (36-46) % MCV 88.1 (80-100) fL MCH 29.1 (26-34) PG MCHC 33.0 (30-36) % RDW 13.2 (11.6-14.8) % Plt Count 219 (150-400) X10^3/uL Neut % (Auto) 55.0 (50-75) % Lymph % (Auto) 36.6 (25-40) % Love % (Auto) 5.7 (3-14) % Eos % (Auto) 2.2 (2-4) % Baso % (Auto) 0.5 (0-2) % Neut # (Auto) 4100 (5330-0455) /uL Lymph # (Auto) 2700 (8979-2816) /uL Love # (Auto) 400 (0-900) /uL Eos # (Auto) 200 (0-450) /uL Baso # (Auto) 0 (0-100) /uL PT 10.9 (9.4-12.5) SECONDS INR 1.0 (0.9-1.3) APTT 34 (25.1-36.5) SECONDS Sodium 136 L (137-145) mmol/L Potassium 4.0 (3.4-5.1) mmol/L Chloride 105 (98-107) mmol/L Carbon Dioxide 25 (22-32) mmol/L BUN 24 H (7-17) mg/dL Creatinine 0.76 (0.52-1.04) mg/dL Estimated GFR > 60 (>60) mL/min BUN/Creatinine Ratio 31.6 H (6-22) Glucose 85 (80-110) mg/dL Calcium 9.0 (8.4-10.2) mg/dL Total Bilirubin 0.4 (0.2-1.3) mg/dL AST 29 (14-36) IU/L ALT 22 (<35) IU/L Alkaline Phosphatase 92 (38-126) U/L Total Protein 6.7 (6.3-8.2) g/dL Albumin 4.3 (3.5-5.0) g/dL Globulin 2.4 (1.7-4.1) g/dL Albumin/Globulin Ratio 1.8 (1.0-2.8) Imaging Data US - DVT: Radiologist's Impression: [address] [address] Ultrasound Report Signed Patient: Lauren Moise MR#: [id number] : 1955 Acct:[id number] Age/Sex: 69 / F Date of Service: 08/12/24 Loc: ED Accession Number: [id number] Procedure: perip venous low extrem rt Ordering Provider: Kartik Cerrato MD PROCEDURE: PERIP VENOUS LOW EXTREM RT INDICATIONS: h/o PE, please evaluate for DVT RLE, R medial thigh painful, R knee swelling TECHNIQUE: Real-time imaging, as well as color and pulse Doppler interrogation, were performed of the lower extremity deep veins from the inguinal ligament to the popliteal fossa, with documentation of the visualized calf veins. COMPARISON: [facility], PERIP VENOUS LOW EXTREM RT, 10/28/2020, 12:24. FINDINGS: The common femoral, femoral, popliteal, and the visualized calf veins are normally compressible, and free of intraluminal thrombus. Color and pulse Doppler demonstrate normal phasic intraluminal flow. There is normal augmentation response to distal compression maneuver. Within the greater saphenous vein, there is clot seen within its midportion, greater than 5 cm from the saphenofemoral junction. IMPRESSION: No findings of lower extremity deep venous thrombosis. Superficial venous thrombosis seen within the greater saphenous vein. Dictated by: Greta AtkinsD. on 08/12/2024 at 14:30 Approved by: Gino Pollock M.D. on 08/12/2024 at 14:31 [facility] Narrative Medical decision making narrative: Patient complains of right inner thigh groin redness and discomfort. She thinks this started about 2 days ago. 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 No longer on it. She had varicose vein stripping done at [place] and develop a DVT then a pulmonary embolism. She denies denies any chest pain or shortness of breath at this time. After history and exam CBC CMP PT INR PTT CMP ultrasound right leg [facility] Medical records reviewed: No recent visit here for this complaint Differential considered: Includes but not limited to DVT SVT varicose veins cellulitis abscess Lab Test results independently reviewed as above. Pertinent findings: WBC 7.5 hemoglobin 13.8 INR 1.0 sodium 136 BUN 24 creatinine 0.76 Imaging studies independently reviewed: Ultrasound right leg SVT of right greater saphenous vein Consultations: None indicated at this time. Treatments: Eliquis Re-evaluations: 3:43 p.m.. Updated patient ultrasound results not a DVT but is SVT but given her propensity and risk of developing DVTs and pulmonary embolisms, she does agree for treatment with Eliquis for the SVT. Return precautions reviewed. Nontoxic at discharge. She desires discharge home. Discussion: Appropriate for discharge home exam is reassuring. Return precautions reviewed with patient. She does desire treatment with Eliquis for the SVT given her risk of developing DVT and PEs in the past. No chest complaints. Return precautions reviewed. She desires discharge home Diagnosis: SVT Discharge Plan Departure Patient Disposition: Home Clinical Impression: Acute superficial venous thrombosis of right lower extremity Instructions: DI for Deep Vein Thrombosis, DI for Superficial Thrombophlebitis Activity Restrictions/Additional Instructions: You are being treated for superficial venous thrombosis, not not not a deep vein thrombosis with Eliquis again, due to your risk of developing DVTs in the past and pulmonary embolisms. Your laboratory studies are reassuring. See your family doctor this week for re-evaluation. Prescription for Eliquis has been provided for you as well. Return if worse if any questions or concerns or if any chest pain or shortness of breath. Prescriptions: No Action Xarelto 10 mg tablet 10 mg PO DAILY Qty: 85 0RF Rx Instructions: for 85 days ESTRIOL 0.125% VAGINAL CREAM See Rx Instructions .ROUTE .COMPLEX Qty: 30 12RF Dose Instruction: Apply 1 gram vaginally every 3 days at bedtime . Rx Instructions: Apply 1 gram vaginally every 3 days at bedtime . levothyroxine 100 mcg tablet 100 mcg PO DAILY Qty: 90 3RF rosuvastatin 5 mg tablet 5 mg PO DAILY Qty: 90 3RF cholecalciferol (vitamin D3) [Vitamin D3] 50 mcg (2,000 unit) Capsule 2,000 unit PO DAILY Referrals: Garry Sims MD [Primary Care Provider] - Stand Alone Forms: Patient Portal/API/Survey
[2024-08-12] MEDS: APIXABAN 5 MG TABLET 10 MG PO (15:33)
[2024-08-12 15:58] LABS: Add Manual Diff / Slide Review NO; Basophils Absolute Auto 0 /uL (0-100); Basophils Percent Auto 0.5 % (0-2); Eosinophils Absolute Auto 200 /uL (0-450); Eosinophils Percent Auto 2.2 % (2-4); Hematocrit 41.9 % (36-46); Hemoglobin 13.8 g/dL (12.0-16.0); Lymphocytes Absolute Auto 2700 /uL (1100-4500); Lymphocytes Percent Auto 36.6 % (25-40); Mean Corpuscular Hemoglobin 29.1 PG (26-34); Mean Corpuscular Volume 88.1 fL (80-100); Monocytes Absolute Auto 400 /uL (0-900); Monocytes Percent Auto 5.7 % (3-14); Neutrophils Absolute Auto 4100 /uL (1500-7000); Platelet Count 219 X10^3/uL (150-400); Red Blood Cell Count 4.75 X10^6/uL (4.0-5.2); Red Cell Distribution Width 13.2 % (11.6-14.8); White Blood Cell Count 7.5 X10^3/uL (4.5-11.0)
[2024-08-12 16:04] LABS: Prothrombin Time 10.9 SECONDS (9.4-12.5)
[2024-08-12 16:07] LABS: PTT Partial Thromboplastin Tim 34 SECONDS (25.1-36.5)
[2024-08-12 16:08] LABS: Alanine Aminotransferase 22 IU/L (<35); Albumin 4.3 g/dL (3.5-5.0); Albumin Globulin Ratio 1.8 (1.0-2.8); Alkaline Phosphatase 92 U/L (38-126); Aspartate Aminotransferase 29 IU/L (14-36); BUN Creatinine Ratio 31.6 (6-22); Bilirubin Total 0.4 mg/dL (0.2-1.3); Blood Urea Nitrogen 24 mg/dL (7-17); Carbon Dioxide 25 mmol/L (22-32); Chloride 105 mmol/L (98-107); Estimated Glomerular Filt Rate > 60 mL/min (>60); Globulin 2.4 g/dL (1.7-4.1); Glucose 85 mg/dL (80-110); HEMOLYSIS < 15 (0-50); Sodium 136 mmol/L (137-145); Total Protein 6.7 g/dL (6.3-8.2)
== END 2024-08-12 17:01 | disposition home or self-care (01) ==
PROVIDERS: Emergency Provider Emergency Medicine; PCP Family Medicine
DX: I82.811 Embolism and thrombosis of superficial veins of right lower extremity (principal); Z86.711 Personal history of pulmonary embolism
CPT/HCPCS: 36415; 80053; 85025; 85610; 85730; 93971; 99283; 99284

== ENCOUNTER → 2024-08-28 16:19 | Outpatient (CLI) | payer MEDICARE, OTHER, SELFPAY ==
[2019-09-02 21:56] VITALS: BMI 23.7
[2024-08-28 17:07] LABS: Erythrocyte Sedimentation Rate 6 MM/HR (0-20)
[2024-08-28 17:23] LABS: C-Reactive Protein Quant < 0.5 mg/dL (<1.0)
[2024-08-28 17:31] LABS: Rheumatoid Factor < 8.6 IU/mL (<12.0)
[2024-08-31 13:41] LABS: CCP Antibodies IgG/IgA 1 units (0-19)
== END ==
LOC: LAB 16:21
PROVIDERS: PCP Family Medicine; Referring Provider Family Medicine; Visit Provider Family Medicine
DX: M25.449 Effusion, unspecified hand (principal); L60.9 Nail disorder, unspecified
CPT/HCPCS: 36415; 85651; 86140; 86200; 86430

== ENCOUNTER → 2024-09-02 16:43 | Outpatient (CLI) | payer MEDICARE, OTHER, SELFPAY ==
[2019-09-02 21:56] VITALS: BMI 23.7
--- NOTE | 2024-09-02 16:45 | DI.RAD.S_ITS ---
PROCEDURE: XR HAND LT MIN 3V INDICATIONS: joint swelling on bilateral hands TECHNIQUE: Three views of the left hand COMPARISON: None. FINDINGS: Bones: No fractures or dislocations. Carpal bones are normally aligned. No suspicious bony lesions. Soft tissues: No suspicious soft tissue calcifications. IMPRESSION: No evidence of acute osseous abnormality. Dictated by: Cornelio Espinosa M.D. on 09/03/2024 at 14:50 Approved by: Cornelio Espinosa M.D. on 09/03/2024 at 14:52
--- NOTE | 2024-09-02 16:45 | DI.RAD.S_ITS ---
PROCEDURE: XR HAND RT MIN 3V INDICATIONS: joint swelling on bilateral hands TECHNIQUE: Three views of the right hand COMPARISON: None. FINDINGS: Bones: No acute fractures or dislocations. Punctate calcific densities are noted posteriorly adjacent to the 2nd and 3rd distal interphalangeal joints, possibly representing sequelae of old trauma. A metallic density ring overlies the base of the 5th digit. Carpal bones are normally aligned. No suspicious bony lesions. Soft tissues: No suspicious soft tissue calcifications. IMPRESSION: No evidence of acute osseous abnormality. Dictated by: Cornelio Espinosa M.D. on 09/03/2024 at 14:52 Approved by: Cornelio Espinosa M.D. on 09/03/2024 at 14:55
== END ==
LOC: RAD 16:44
PROVIDERS: PCP Family Medicine; Referring Provider Family Medicine; Visit Provider Family Medicine
DX: M25.441 Effusion, right hand (principal); M25.442 Effusion, left hand; L60.9 Nail disorder, unspecified
CPT/HCPCS: 73130

== ENCOUNTER → 2024-09-24 11:19 | Outpatient (CLI) | payer MEDICARE, OTHER, SELFPAY ==
[2019-09-02 21:56] VITALS: BMI 23.7
[2024-09-24 13:04] LABS: Appearance Urine UA CLOUDY; Bilirubin Urine UA NEGATIVE (NEGATIVE); Color Urine UA YELLOW; Glucose Urine UA NEGATIVE (Negative); Ketones Urine UA NEGATIVE (NEGATIVE); Leukocyte Esterase Urine UA NEGATIVE (NEGATIVE); Nitrite Urine UA NEGATIVE (Negative); Occult Blood Urine UA NEGATIVE (Negative); Protein Urine UA NEGATIVE (Negative); Specific Gravity Urine UA 1.015 (1.000-1.035); Urobilinogen Urine UA 0.2 E.U./dL (0.2)
[2024-09-24 13:13] LABS: pH Urine UA 7.5 (4.5-8.0)
[2024-09-24 13:14] LABS: Amorphous Sediment Urine 2+; Bacteria Urine None Seen; Culture Indicated Urine Cult Not Indicated; RBC Urine None Seen (0-5/HPF); Squamous Epithelial Cell Urine None Seen (0-5/HPF); Urine Volume 10mL (spun); WBC Urine None Seen (0-5/HPF)
== END ==
PROVIDERS: PCP Family Medicine; Visit Provider Obstetrics & Gynecology Gynecology
DX: N39.41 Urge incontinence (principal)
CPT/HCPCS: 81001

== ENCOUNTER → 2025-04-07 09:13 | Outpatient (CLI) | payer MEDICARE, OTHER, SELFPAY ==
[2025-03-08 19:30] VITALS: BMI 24.4
[2025-04-07 09:55] LABS: Add Manual Diff / Slide Review NO; Hematocrit 38.5 % (36-46); Hemoglobin 13.1 g/dL (12.0-16.0); Lymphocytes Absolute Auto 2100 /uL (1100-4500); Mean Corpuscular HGB Conc 34.0 % (30-36); Mean Corpuscular Hemoglobin 28.6 PG (26-34); Mean Corpuscular Volume 84.3 fL (80-100); Platelet Count 271 X10^3/uL (150-400)
[2025-04-07 10:20] LABS: Alanine Aminotransferase 14 IU/L (<35); Albumin 4.1 g/dL (3.5-5.0); Albumin Globulin Ratio 1.8 (1.0-2.8); Alkaline Phosphatase 97 U/L (38-126); Blood Urea Nitrogen 13 mg/dL (7-17); Calcium 9.2 mg/dL (8.4-10.2); Carbon Dioxide 26 mmol/L (22-32); Chloride 103 mmol/L (98-107); Cholesterol 243 mg/dL (140-199); Estimated Glomerular Filt Rate > 60 mL/min (>60); Globulin 2.3 g/dL (1.7-4.1); Glucose 89 mg/dL (70-99); HDL Cholesterol 60 mg/dL (40-60); HEMOLYSIS < 15 (0-50); Potassium 4.6 mmol/L (3.4-5.1); Sodium 137 mmol/L (137-145); Total Protein 6.4 g/dL (6.3-8.2); Triglycerides 142 mg/dL (35-150)
[2025-04-07 10:48] LABS: TSH w/ Reflex to FT4 1.09 uIU/mL (0.47-4.68)
== END ==
PROVIDERS: PCP Family Medicine; Referring Provider Family Medicine; Visit Provider Family Medicine
DX: Z86.711 Personal history of pulmonary embolism (principal); E55.9 Vitamin D deficiency, unspecified; Z78.0 Asymptomatic menopausal state; M85.80 Other specified disorders of bone density and structure, unspecified site; E78.2 Mixed hyperlipidemia; E03.9 Hypothyroidism, unspecified; I26.99 Other pulmonary embolism without acute cor pulmonale; I73.9 Peripheral vascular disease, unspecified
CPT/HCPCS: 36415; 80053; 80061; 82172; 84443; 85025

== ENCOUNTER → 2025-04-20 10:53 | Outpatient (CLI) | payer MEDICARE, OTHER, SELFPAY ==
[2025-03-08 19:30] VITALS: BMI 24.4
== END ==
PROVIDERS: PCP Family Medicine; Referring Provider Family Medicine; Visit Provider Family Medicine
DX: Z12.11 Encounter for screening for malignant neoplasm of colon (principal)
CPT/HCPCS: 82274

== ENCOUNTER → 2025-06-14 13:55 | Outpatient (CLI) | payer MEDICARE, OTHER, SELFPAY ==
[2025-03-08 19:30] VITALS: BMI 24.4
[2025-06-14 14:36] LABS: Appearance Urine UA CLEAR; Bilirubin Urine UA NEGATIVE (NEGATIVE); Color Urine UA YELLOW; Glucose Urine UA NEGATIVE (Negative); Ketones Urine UA NEGATIVE (NEGATIVE); Leukocyte Esterase Urine UA 1+ (NEGATIVE); Nitrite Urine UA NEGATIVE (Negative); Occult Blood Urine UA 3+ (Negative); Protein Urine UA NEGATIVE (Negative); Specific Gravity Urine UA <=1.005 (1.000-1.035); Urobilinogen Urine UA 0.2 E.U./dL (0.2); pH Urine UA 6.0 (4.5-8.0)
[2025-06-14 14:38] LABS: Culture Indicated Urine Specimen Cultured
== END ==
PROVIDERS: PCP Family Medicine; Referring Provider Obstetrics & Gynecology Gynecology; Visit Provider Obstetrics & Gynecology Gynecology
DX: R31.9 Hematuria, unspecified (principal); R35.0 Frequency of micturition
CPT/HCPCS: 81001; 87086